=== PATIENT | male | born 1980 | race Caucasian/White ===

== ENCOUNTER 2016-11-01 13:24 | Inpatient (IN) | payer MEDICAID, OTHER ==
--- NOTE | 2016-11-01 13:38 | EDPHY ---
H & P - Medical/Surgical History Hx Asthma: No Hx Chronic Respiratory Disease: No Hx Diabetes: No Hx Cardiac Disease: No Hx Renal Disease: No Hx Cirrhosis: No Hx Alcoholism: No Hx HIV/AIDS: No Hx Splenectomy or Spleen Trauma: No Other PMH: manic-depression, schizoaffective - Social History Smoking Status: Current every day smoker HPI/ROS: CHIEF COMPLAINT: Diffuse abdominal pain since last evening HISTORY OF PRESENT ILLNESS: 35-year-old male with no prior history of abdominal surgeries arrives from detention complaining of diffuse abdominal pain since last evening. No nausea or vomiting. Last bowel movement was this morning and was normal according the patient. No melena or hematochezia. Atraumatic. No urinary abnormality. No fever or chills. No prior history of similar. No history of pancreatitis. PRIMARY CARE PROVIDER: none REVIEW OF SYSTEMS: A ten point review of systems was performed and is negative with the exception of the items mentioned in the HPI PAST MEDICAL & SURGICAL HISTORY: No history of abdominal surgeries. SOCIAL HISTORY: has been in detention since September 2016 PHYSICAL EXAM (Prior to examination, patient consented to physical exam, hands were washed and my usual and customary physical exam procedures followed) 1) GENERAL: Well-developed, well-nourished, alert and oriented. Appears uncomfortable, guarding abdomen, yelling . 2) HEAD: Normocephalic, atraumatic 3) HEENT: Pupils equal, round, reactive to light bilaterally. Sclera anicteric. 4) NECK: Full range of motion, no meningeal signs. 5) LUNGS: Clear auscultation bilaterally 6) HEART: Regular rate and rhythm, no murmur, no heave, no gallop. 7) ABDOMEN: flat, guarding, diffusely tender to palpation all quadrants. , 8) MUSCULOSKELETAL: No peripheral edema or discoloration. 9) BACK: No CVA tenderness, 10) SKIN: No rash, no petechiae. 11) : Normal male external genitalia no testicular pain, swelling, asymmetry. Bilateral cremasteric reflex present and brisk DIFFERENTIAL DIAGNOSIS: My differential diagnosis includes, but is not limited to, acute appendicitis, acute cholecystitis, bowel obstruction, acute pancreatitis, testicular torsion, gastritis, rectal foreign body, bowel perforation . (Sammi Long) Constitutional: Initial Vital Signs Temperature (C) 37.5 C 11/01/16 13:43 Heart Rate 130 H 11/01/16 13:43 Respiratory Rate 16 11/01/16 13:43 Blood Pressure 112/78 11/01/16 13:43 O2 Sat (%) 94 11/01/16 13:43 O2 Delivery Mode Room Air Allergies/Adverse Reactions: No Known Allergies Allergy (Unverified 11/01/16 13:43) Home Medications: Medication Instructions Recorded Risperdal 12/19/13 Seroquel 100 mg (RX) 12/19/13 Sertraline HCl [Zoloft 100mg (RX)] 12/19/13 AZITHROMYCIN [Z-PACK] 250 mg PO DAILY #6 tab 09/23/14 Medical Decision Making - Diagnostics Imaging Results: Imaging Impressions Abdomen CT 11/01/16 13:36 Impression: 1. Foreign body in the rectosigmoid colon midpelvis measuring 8 x 5.5 cm perforating through the colon with abdominal and pelvic extensive pneumoperitoneum and ascites/hemorrhage. By history this is a piece of tile. 2. Please see above findings. Findings and recommendations discussed with Emergency Department physician's catering administrative assistant, Lizbet Long, at 1410 hours, 11/01/2016. Final report concurs with initial preliminary interpretation. Imaging Impressions Abdomen CT 11/01/16 13:36 Impression: 1. Foreign body in the rectosigmoid colon midpelvis measuring 8 x 5.5 cm perforating through the colon with abdominal and pelvic extensive pneumoperitoneum and ascites/hemorrhage. By history this is a piece of tile. 2. Please see above findings. Findings and recommendations discussed with Emergency Department physician's catering administrative assistant, Lizbet Long, at 1410 hours, 11/01/2016. Final report concurs with initial preliminary interpretation. Images reviewed by myself (Sammi Long) ED Course/Re-evaluation: 1:40pm: This patient was seen and examined by me. He is tachycardiac and has a normal blood pressure now. He was initially hypotensive. Abdomen is diffusely tender, decreased bowel sounds, c/w acute surgical abdomen. stat CT abd/pelvis ordered. (Macy Mejia) 1:30 p.m.: Seen on arrival by myself and Dr. Mejia. 2:14 p.m.: Re-evaluation, specifically inquired about the radiopaque foreign body visible on CT imaging. Patient states that this is a floor tile that he purposefully placed in his rectum. Patient did not bring this to our attention previously. 2:19 p.m.: Phone consultation with Dr. Schneider who will come to ER to evaluate patient admit patient. Patient started on IV Invanz. Last oral intake was 8:00 a.m.. (Sammi Long) Differential Diagnosis: Differential diagnosis includes though it is not limited to appendicitis, cholecystitis, diverticulitis, pyelonephritis, small bowel obstruction. (Macy Mejia) - Data Points Laboratory Results: Laboratory Results 11/01/16 13:38 11/01/16 13:38 11/01/16 11/01/16 11/01/16 13:38 13:38 13:31 WBC 6.04 10^3/uL 10^3/uL (3.80-9.50) RBC 4.80 10^6/uL 10^6/uL (4.40-6.38) Hgb 14.8 g/dL g/dL (13.7-17.5) POC Hgb 15.0 gm/dL gm/dL (14.5-17.3) Hct 41.7 % % (40.0-51.0) POC Hct 44 % % (42.8-50.6) MCV 86.9 fL fL (81.5-99.8) MCH 30.8 pg pg (27.9-34.1) MCHC 35.5 g/dL g/dL (32.4-36.7) RDW 12.3 % % (11.5-15.2) Plt Count 312 10^3/uL 10^3/uL (150-400) MPV 8.9 fL fL (8.7-11.7) Neut % (Auto) Not Reported Lymph % (Auto) Not Reported [place] % (Auto) Not Reported Eos % (Auto) Not Reported Baso % (Auto) Not Reported Nucleat RBC Rel Count 0.0 % % (0.0-0.2) Absolute Neuts (auto) Not Reported Absolute Lymphs (auto) Not Reported Absolute Monos (auto) Not Reported Absolute Eos (auto) Not Reported Absolute Basos (auto) Not Reported Absolute Nucleated RBC 0.00 10^3/uL 10^3/uL (0-0.01) Immature Gran % Not Reported Seg Neutrophils % 35 % % Band Neutrophils % 55 % % Lymphocytes % 8 % % Monocytes % 2 % % Immature Gran # Not Reported Absolute Seg Neuts 2.11 10^/uL 10^/uL (1.70-6.50) Absolute Band Neuts 3.32 10^3/uL H 10^3/uL (0.00-0.70) Absolute Lymphocytes 0.48 10^3/uL L 10^3/uL (1.00-3.00) Absolute Monocytes 0.12 10^3/uL L 10^3/uL (0.30-0.80) RBC/WBC/PLT Morphology NORMAL (NORMAL) Platelet Estimate ADEQUATE (ADEQ) POC Sodium 140 mEq/L mEq/L (134-144) Sodium 139 mEq/L mEq/L (134-144) POC Potassium 4.0 mEq/L mEq/L (3.3-5.0) Potassium 4.2 mEq/L mEq/L (3.5-5.2) POC Chloride 102 mEq/L mEq/L (96-108) Chloride 105 mEq/L mEq/L (97-110) Carbon Dioxide 21 mEq/l L mEq/l (22-31) Anion Gap 13 mEq/L mEq/L (8-16) POC BUN 13 mg/dL mg/dL (7-23) BUN 14 mg/dL mg/dL (7-23) Creatinine 1.1 mg/dL mg/dL (0.7-1.3) POC Creatinine 1.2 mg/dL mg/dL (0.8-1.5) Estimated GFR > 60 Glucose 128 mg/dL H mg/dL (70-100) POC Glucose 130 mg/dL H mg/dL (70-100) Calcium 9.0 mg/dL mg/dL (8.5-10.4) Total Bilirubin 1.5 mg/dL H mg/dL (0.1-1.4) Conjugated Bilirubin 0.5 mg/dL mg/dL (0.0-0.5) Unconjugated Bilirubin 1.0 mg/dL mg/dL (0.0-1.1) AST 22 IU/L IU/L (17-59) ALT 23 IU/L IU/L (21-72) Alkaline Phosphatase 87 IU/L IU/L (38-126) Total Protein 6.8 g/dL g/dL (6.3-8.2) Albumin 3.6 g/dL g/dL (3.5-5.0) Lipase 25.0 IU/L IU/L (23-300) Medications Given: Discontinued Medications Fentanyl (Sublimaze) 50 mcg IVP EDNOW ONE Stop: 11/01/16 13:57 Last Admin: 11/01/16 13:57 Dose: 50 mcg Fentanyl (Sublimaze) 50 mcg IVP EDNOW ONE Stop: 11/01/16 14:25 Last Admin: 11/01/16 14:53 Dose: 50 mcg Ertapenem 1 gm/ Sodium (Chloride) 100 mls @ 200 mls/hr IV EDNOW ONE PRN Reason: Protocol Stop: 11/01/16 14:44 Last Admin: 11/01/16 14:30 Dose: 100 mls Point of Care Test Results: 11/01/16 13:31 POC Sodium 140 POC Potassium 4.0 POC Chloride 102 POC BUN 13 POC Creatinine 1.2 POC Glucose 130 H Departure - Departure Disposition: [facility] Inpatient Acute Clinical Impression: Intestinal perforation Abdominal pain Qualifiers: Abdominal location: generalized Qualified Code(s): R10.84 - Generalized abdominal pain Rectal foreign body Qualifiers: Encounter type: initial encounter Qualified Code(s): T18.5XXA - Foreign body in anus and rectum, initial encounter Condition: Fair
[2016-11-01] MEDS ORDERED: fentaNYL 100 MCG/2 ML INJ ONE ×2 (13:41→14:51)
[2016-11-01] MEDS ORDERED: IOPAMIDOL (ISOVUE-300) 100 ML BTL IV ONE (13:43)
[2016-11-01 13:45] LABS: ADD MORPH? NO; ATYPICAL LYMPHOCYTE FLAG 0 (0-99); FRAGMENT RBC FLAG 0 (0-99); HEMATOCRIT 41.7 % (40.0-51.0); HEMOGLOBIN 14.8 g/dL (13.7-17.5); LIPEMIA HEMOLYSIS FLAG 90 (0-99); MEAN CELL HEMOGLOBIN 30.8 pg (27.9-34.1); MEAN CELL HEMOGLOBIN CONCENTR. 35.5 g/dL (32.4-36.7); MEAN CELL VOLUME 86.9 fL (81.5-99.8); MEAN PLATELET VOLUME 8.9 fL (8.7-11.7); PLATELET CLUMPS FLAG 0 (0-99); PLATELET COUNT 312 10^3/uL (150-400); RED CELL DISTRIBUTION WIDTH 12.3 % (11.5-15.2)
[2016-11-01 13:46] LABS: LEFT SHIFT FLG 300 (0-99)
[2016-11-01 13:47] LABS: ADD DIFF? YES; ADD SCAN? NO
[2016-11-01] MEDS ORDERED: fentaNYL 100 MCG/2 ML INJ IVP ONE ×2 (13:56→14:24)
[2016-11-01 14:04] LABS: ALANINE AMINOTRANSFERASE 23 IU/L (21-72); ALBUMIN 3.6 g/dL (3.5-5.0); ALKALINE PHOSPHATASE 87 IU/L (38-126); ANION GAP 13 mEq/L (8-16); ASPARTATE AMINOTRANSFERASE 22 IU/L (17-59); BILIRUBIN,TOTAL 1.5 mg/dL (0.1-1.4); BILIRUBIN-CONJUGATED 0.5 mg/dL (0.0-0.5); CARBON DIOXIDE 21 mEq/l (22-31); CHLORIDE 105 mEq/L (97-110); CREATININE 1.1 mg/dL (0.7-1.3); GLOMERULAR FILTRATION RATE > 60; GLUCOSE 128 mg/dL (70-100); POTASSIUM 4.2 mEq/L (3.5-5.2); SODIUM 139 mEq/L (134-144); TOTAL PROTEIN 6.8 g/dL (6.3-8.2)
[2016-11-01] MEDS ORDERED: ERTAPENEM 1 GM in NS 100 ML IV ONE (14:15)
[2016-11-01] MEDS ORDERED: LIDOCAINE 2% JELLY 20 ML (UROJECT) ONE ×2 (14:39→14:40)
[2016-11-01] MEDS ORDERED: BUPIVACAINE/EPI 0.25% 30 ML SDV ONE (14:39)
[2016-11-01] MEDS ORDERED: ROCURONIUM 50 MG/5 ML VIAL ONE ×2 (14:50→16:30)
[2016-11-01] MEDS ORDERED: LIDOCAINE 2% 5 ML SDV ONE (14:50)
[2016-11-01] MEDS ORDERED: ONDANSETRON 4 MG/2 ML VIAL ONE (14:50)
[2016-11-01] MEDS ORDERED: KETOROLAC 30 MG/1 ML SDV ONE (14:50)
[2016-11-01] MEDS ORDERED: DEXAMETHASONE 4 MG/ML VIAL ONE (14:50)
[2016-11-01] MEDS ORDERED: PROPOFOL 200 MG/20 ML VIAL ONE (14:51)
[2016-11-01 14:59] LABS: PLATELET ESTIMATE ADEQUATE (ADEQ)
[2016-11-01] MEDS ORDERED: MIDAZOLAM 2 MG/2 ML VIAL ONE (15:07)
[2016-11-01] MEDS ORDERED: SUCCINYLCHOLINE CHLORIDE*ANESTHESIA ONLY*200 MG/10 ML SYR IVP ONE (15:13)
--- NOTE | 2016-11-01 15:13 | GHP ---
[f rep st] HISTORY AND PHYSICAL DATE OF ADMISSION: 11/01/2016 CHIEF COMPLAINT: Abdominal pain. HISTORY OF PRESENT ILLNESS: This is a 35-year-old incarcerated male [facility]ruciating [facility] pain. Per the patient's report, he started having the pain late yesterday evening and has progressed to the point where he is in extremis and the senior living bro ught him in for further evaluation here in the emergency department today. Per the patient's report , he has had a foreign body which appears to be a piece of floor tile in his rectum for some time. The patient states multiple different times that it has been in there anywhere from 6 to 12 months, but it sounds like it has been in there an extended amount of time. He states that he has had multi ple foreign bodies within his rectum within the past year and that this may not be the only one at t his point in time. Other than the pain, he endorses having fevers and chills. He denies any other complaints at this point in time, and would like this fixed as soon as possible. PAST MEDICAL HISTORY: Significant for depression and some kind of mood disorder. PAST SURGICAL HISTORY: He had a toe removal; has never had any belly surgeries. SOCIAL HISTORY: Currently incarcerated in the [facility] senior living. Denies any current illicit and/ or alcohol abuse. REVIEW OF SYSTEMS: A full 10-point review was performed and unless explicitly stated above, is othe rwise negative. PHYSICAL EXAM: VITAL SIGNS: Temp 37.5, blood pressure 112/78, heart rate 130/80, saturating 94% on room air. GENERAL: He is alert and oriented, in moderate amount distress. CV: He is tachycardic without any murmurs. LUNGS: Clear to auscultation bilaterally. ABDOMEN: Diffusely rigid with re bound tenderness and guarding. No previous surgical scars apparent. RECTAL: Exam deferred. EXTRE MITIES: Warm and well perfused. LABS: White count 6. Chemistries are unremarkable. CT scan shows a large foreign body within the rectosigmoid colon with a large amount of associated f ree air. ASSESSMENT AND PLAN: 35-year-old male with a colonic perforation secondary to foreign body with dev eloping sepsis. The patient has been started on broad-spectrum antibiotics, as well as IV fluids in the emergency department. I have consented him to take him to the operating room expeditiously for exploration to repair and/or resect the area of perforation and to remove the foreign body. I did discuss the risks, benefits, and alternatives, and did discuss with him that there was a decent rosario ce he will have a colostomy which will depend on intraoperative findings. /[id number]/MODL
[2016-11-01] MEDS ORDERED: BACITRACIN 50,000 UNITS/10 ML SYR IRR ONE (15:14)
[2016-11-01] MEDS ORDERED: PHENYLEPHRINE HCL 100 MCG/ML SYR ONE (15:25)
[2016-11-01] MEDS ORDERED: ALBUMIN 5% 250 ML BOTTLE IV ONE (16:01)
[2016-11-01] MEDS ORDERED: SUGAMMADEX SODIUM 200 MG/2 ML VIAL IVP ONE (16:50)
[2016-11-01] MEDS ORDERED: HYDROmorphONE/DILAUDID 2 MG/ML INJ ONE (17:16)
[2016-11-01] MEDS ORDERED: ACETAMINOPHEN 325 MG TAB PO PRN (17:52)
[2016-11-01] MEDS ORDERED: ONDANSETRON DISINTEGRATING 4 MG TAB PO PRN (17:52)
[2016-11-01] MEDS ORDERED: ONDANSETRON 4 MG/2 ML VIAL IVP PRN (17:52)
--- NOTE | 2016-11-01 17:52 | POSTOPPROG ---
Post Op Note Date of Operation: 11/01/16 Surgeon: José Schneider Agency Appointments Supervisor: Eugenio John MD Anesthesiologist: Agustín Anesthesia: GET(General Endotracheal) Pre-op Diagnosis: perforated viscus Post-op Diagnosis: sigmoid perforation secondary to foreign body Procedure: ex-lap, colectomy, end colostomy with Nikolas's Findings: perf identified in sigmoid, resected. Gross contamination Inf/Abcess present in the surg proc area at time of surgery?: Yes Depth: Organ Space EBL: Minimal Total fluids administered: 5000 Drains: Roscoe Moreno Specimen(s): Sigmoid colon
[2016-11-01] MEDS ORDERED: NALOXONE HCL 0.4 MG/ML INJ IVP PRN (17:55)
[2016-11-01] MEDS ORDERED: HYDROmorphONE/DILAUDID 1 MG/ML SYR ONE (18:07)
[2016-11-01] MEDS: D5W 1/2 NS W/ 20 KCl/L 1,000 ML IV SCH (18:40)
[2016-11-01] MEDS: HYDROmorphONE/DILAUDID 6 MG/30 ML PCA IV PRN (18:40)
[2016-11-01] MEDS: GABAPENTIN 400 MG CAP PO SCH ×2 (18:44→22:46)
--- NOTE | 2016-11-01 18:49 | GOP ---
[f rep st] OPERATIVE REPORT DATE OF OPERATION: 11/01/2016 SURGEON: José Schneider MD POSTAL TRANSPORTATION CLERK: Eugenio John M.D. ANESTHESIA: General endotracheal per Dr. Randolph. PREOPERATIVE DIAGNOSIS: Perforated viscus. POSTOPERATIVE DIAGNOSIS: Perforated sigmoid colon secondary to foreign body. PROCEDURE PERFORMED: Exploratory laparotomy, sigmoid resection with end colostomy and Nikolas pouc h. FINDINGS: Grossly contaminated abdomen with fecal material in all 4 quadrants. Cultures taken. Foc al perforation of the sigmoid colon just above the peritoneal reflection was identified; this area w as focally resected. There was significant amount of induration in the remainder of the rectum. An e nd colostomy was performed. SPECIMENS: Sigmoid colon. ESTIMATED BLOOD LOSS: 25 cc. DESCRIPTION OF PROCEDURE: Patient was greeted in the Emergency Room. Risks, benefits and alternativ es were discussed. Consent was signed. He was then brought back to the operative suite, placed on the OR table in a supine position. After all anesthesia machines, including SCDs were on and functio mundo, a World Health Organization time-out was performed. Antibiotics were given on-call to the ope rating room. General endotracheal anesthesia was then induced without incident. The patient was th en appropriately prepped and draped in typical sterile fashion. I entered the abdomen via a generou s midline incision, carried it down through subcutaneous tissue and the fascia. Upon entering the pa tient's abdomen, there was purulent material throughout the patient's abdomen. An initial attempt w as made to suction all this out. Once this was done, an Omni retractor was placed for appropriate v isualization, identified the sigmoid colon and identified a focal perforation on the antimesenteric border of the sigmoid colon just above the peritoneal reflection. I could palpate the foreign body just deep to this at that site. The remainder of the proximal sigmoid colon appeared to be healthy. Using a single fire of the NIYA-75 blue load stapler, I then stapled off the sigmoid colon just proxi mal to the perforation. I then made a colotomy encompassing the perforation at that site through whi ch I was able to deliver the foreign body, which appeared to be a ceramic-type piece of material, si gnificantly large and sharp. It was removed and passed off. I then oversewed this site as there was still a massive amount of stool and fecal material extruding from it. After this was done, I inter rogated the rest of the sigmoid and rectum. The rectum did appear indurated, but I did not identify any other perforations at this time. After this was done, my attention was then turned toward remov ing the gross contamination. Using almost 6 L of sterile saline with antibiotic impregnation, I irri gated the abdomen in all 4 quadrants, noting clear effluent in the suction canister. After successf ully irrigated and given the amount of gross contamination, I elected to perform an end colostomy. Again, the site that I had oversewn had not been resected. I then dissected down just deep to this, took the mesentery down successfully with the LigaSure device and, using a single fire of the Flapshare r stapler, successfully resected a portion of the rectum and passed it off. The staple line was the n marked on either end with Prolene stitches. After this was done, I mobilized the sigmoid colon to ensure that I had enough length to reach the abdominal wall. I then attempted to perform rigid pro ctoscopy but, given the amount of stool within the rectal stump, I was then able to successfully vis ualize anything at that point in time, even with copious irrigations per rectum. Gloves and gowns we re then changed for me and my resident programs assistant. We then turned our attention toward closing the midline via the fascia with a #1 PDS suture, noting excellent fascial reapproximation. Prior to doing this, we had made a hole in the anterior abdominal wall through the left rectus sheath through which our sig moid colon had been successfully tunneled. Also, I had placed a 19-Sri [place]ank[place] fully fluted channel drain into the pelvis and brought it out via a separate stab incision in the right lower quadrant. In subcutaneous tissue, I placed my 13-S[place]ankan drain, brought it out via separate stab incision in the left lower quadrant. Both drains were attached to the skin with nylon stitches. The skin was then closed over this drain with arie. I then turned my attention toward maturing my colostomy. It was tacked successfully using Vicryl to the underlying fascia. The staple line was then cut and, in a Rhoda-type fashion, I matured my colostomy noting excellent eversion. The ostomy appliance was then successfully placed. Sterile dressings were placed to all sites. The patient was then extubated in the operative suite and placed back onto his gurney, and taken to the PACU in satisfactory condition . DRAINS: A 19-Sri [place]ankan channel drain into the pelvis. A 13-S[place]ankan drain in subcu beneath the arie. COUNTS: All counts were reported as correct x2. /[id number]/MODL
[2016-11-01 22:23] LABS: COLOR YELLOW; LEUKOCYTE ESTERASE,URINE NEGATIVE (NEGATIVE); NITRITE,URINE NEGATIVE (NEGATIVE)
[2016-11-01 22:24] LABS: MUCUS TRACE /lpf (NONE-1+)
[2016-11-01] MEDS: QUEtiapine FUMARATE 300 MG TAB PO SCH (22:46)
[2016-11-02] MEDS: HYDROmorphONE/DILAUDID 6 MG/30 ML PCA IV PRN ×2 (04:35→14:51)
[2016-11-02 05:09] LABS: % IMMATURE GRANULYOCYTES 0.8 % (0.0-1.1); ABSOLUTE IMMATURE GRANULOCYTES 0.12 10^3/uL (0.00-0.10); ADD DIFF? NO; ADD MORPH? NO; ADD SCAN? YES; ATYPICAL LYMPHOCYTE FLAG 0 (0-99); FRAGMENT RBC FLAG 0 (0-99); HEMATOCRIT 30.7 % (40.0-51.0); HEMOGLOBIN 10.7 g/dL (13.7-17.5); LIPEMIA HEMOLYSIS FLAG 90 (0-99); MEAN CELL HEMOGLOBIN 31.6 pg (27.9-34.1); MEAN CELL HEMOGLOBIN CONCENTR. 34.9 g/dL (32.4-36.7); MEAN CELL VOLUME 90.6 fL (81.5-99.8); MEAN PLATELET VOLUME 9.2 fL (8.7-11.7); PLATELET CLUMPS FLAG 0 (0-99); PLATELET COUNT 190 10^3/uL (150-400); RED BLOOD CELL COUNT 3.39 10^6/uL (4.40-6.38); RED CELL DISTRIBUTION WIDTH 12.9 % (11.5-15.2)
[2016-11-02 05:32] LABS: LEFT SHIFT FLG 300 (0-99)
[2016-11-02 05:48] LABS: ANION GAP 7 mEq/L (8-16); CALCIUM 7.8 mg/dL (8.5-10.4); CARBON DIOXIDE 24 mEq/l (22-31); CHLORIDE 105 mEq/L (97-110); CREATININE 0.7 mg/dL (0.7-1.3); GLOMERULAR FILTRATION RATE > 60; GLUCOSE 143 mg/dL (70-100); POTASSIUM 4.6 mEq/L (3.5-5.2); SODIUM 136 mEq/L (134-144)
[2016-11-02 06:00] LABS: SCAN POSITIVE
[2016-11-02 06:03] LABS: PLATELET ESTIMATE ADEQUATE (ADEQ)
[2016-11-02] MEDS: ERTAPENEM 1 GM in NS 100 ML IV SCH (08:02)
[2016-11-02] MEDS: GABAPENTIN 400 MG CAP PO SCH ×3 (08:02→20:19)
[2016-11-02] MEDS: ENOXAPARIN 40 MG/0.4 ML SYR SC SCH (08:02)
--- NOTE | 2016-11-02 09:26 | WOCRNPDOC ---
SHIRA Advanced Assessment Note - Colostomy Assessment, Advanced Colostomy Stoma Colostomy Appliance Intact: Yes Colostomy Appliance Currently in Use: Two Piece Flat, 2 3/4, Moldable Stoma Color: Red Stoma Turgor: Moist, Shiny Stoma Shape: Round Stoma Height: Protruding Mucocutaneus Junction: Intact Colostomy Effluent: Serosangenous, Mucous Colostomy Size - Head-to-Toe Length X Width X Depth (cm): 3.5cmx3.7cmx2.1cm ( above skin) Colostomy Details: End, Nikolas's Pouch Colostomy Comment/Treatment Details: Moist, red stoma w/ moderate profile. Unable to visualize peristomal skin because of intact barrier, intact sutures noted at mucocutaneous junction. No flatus in pouch because of filter on bag, but there is scant serosanguinous/mucous observed. Patient c/o 9/10 pain to abdomen during visual assessment, and was advised to use his HANGER. Initiated teaching w/ patient this visit. He was able to look at the stoma, and demonstrated general knowledge about the surgery, stating "that's my intestine. " Due to c/o pain, I will re-attempt teaching on Saturday 11/04 when he is due to have his pouching system changed. Officer in room during this visit. Attempted to leave some general teaching information for patient, but was informed by officer that I would have to remove the metal spirals from the Secure Start colostomy booklet for patient/staff safety. Will deliver educational material this afternoon that meets officer's safety guidelines. Report given to senior bioinformatics specialist Aimee.
--- NOTE | 2016-11-02 09:54 | SOAPPROG ---
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 Has not needed pressors. will cont to monitor - Abd: soft, ND, aTTP. Incision covered with clean dressing. Stoma beefy red, sweat in appliance. Wound RN to see and assist with stoma care and teaching. PASTORA mostly serous. Received 2 enemas overnight, drained mostly purulent material. Will defer flex sig for now as my treatment for rectal injury which I assuming he has to some degree would be diversion (which he is). He is tolerating clears , I anticipate ileus so will not advance past this today - Renal: mendoza, UOP appropriate. - ID: WBC up to 15k today, gram stain showing GPCs and GPRs. On Invanz, I have asked ID to assist with managment - Dispo: remain SDU. Cont abx. and clear liquids. 11/02/16 09:50 11/02/16 09:54 Subjective: Doing well, pain controlled. Tolerating clears Objective: Vital Signs Temp Pulse Resp BP Pulse Ox 36.7 C 108 H 23 H 98/70 L 100 11/02/16 08:00 11/02/16 08:00 11/02/16 08:00 11/02/16 08:00 11/02/16 08:00 Microbiology 11/01/16 16:36 Gram Stain - Final Abdomen - Aspirate Laboratory Results 11/02/16 04:45 11/02/16 04:45 11/01/16 11/02/16 11/03/16 05:59 05:59 05:59 Intake Total 6037 Output Total 3130 Balance 2907 ICD10 Worksheet Patient Problems: Problems Problem Status Onset Abdominal pain Acute Intestinal perforation Acute Rectal foreign body Acute
[2016-11-02 12:41] LABS: % IMMATURE GRANULYOCYTES 1.1 % (0.0-1.1); ABSOLUTE IMMATURE GRANULOCYTES 0.19 10^3/uL (0.00-0.10); ADD DIFF? NO; ADD MORPH? NO; ADD SCAN? YES; ATYPICAL LYMPHOCYTE FLAG 0 (0-99); FRAGMENT RBC FLAG 0 (0-99); HEMATOCRIT 31.6 % (40.0-51.0); HEMOGLOBIN 10.8 g/dL (13.7-17.5); LIPEMIA HEMOLYSIS FLAG 90 (0-99); MEAN CELL HEMOGLOBIN 31.4 pg (27.9-34.1); MEAN CELL HEMOGLOBIN CONCENTR. 34.2 g/dL (32.4-36.7); MEAN CELL VOLUME 91.9 fL (81.5-99.8); MEAN PLATELET VOLUME 9.3 fL (8.7-11.7); PLATELET CLUMPS FLAG 0 (0-99); PLATELET COUNT 197 10^3/uL (150-400); RED BLOOD CELL COUNT 3.44 10^6/uL (4.40-6.38); RED CELL DISTRIBUTION WIDTH 12.8 % (11.5-15.2)
[2016-11-02 12:43] LABS: INR 1.48 (0.83-1.16); LEFT SHIFT FLG 300 (0-99); PROTIME(PATIENT) 17.9 SEC (12.0-15.0)
[2016-11-02 13:07] LABS: ALANINE AMINOTRANSFERASE 28 IU/L (21-72); ALBUMIN 2.7 g/dL (3.5-5.0); ALKALINE PHOSPHATASE 48 IU/L (38-126); ANION GAP 7 mEq/L (8-16); ASPARTATE AMINOTRANSFERASE 16 IU/L (17-59); BILIRUBIN,TOTAL 0.6 mg/dL (0.1-1.4); BILIRUBIN-CONJUGATED 0.3 mg/dL (0.0-0.5); BILIRUBIN-UNCONJUGATED 0.3 mg/dL (0.0-1.1); CALCIUM 8.1 mg/dL (8.5-10.4); CARBON DIOXIDE 27 mEq/l (22-31); CHLORIDE 103 mEq/L (97-110); CREATININE 0.7 mg/dL (0.7-1.3); GLOMERULAR FILTRATION RATE > 60; GLUCOSE 93 mg/dL (70-100); POTASSIUM 4.6 mEq/L (3.5-5.2); SODIUM 137 mEq/L (134-144); TOTAL PROTEIN 5.4 g/dL (6.3-8.2)
[2016-11-02 13:15] LABS: SCAN POSITIVE
[2016-11-02 13:18] LABS: PLATELET ESTIMATE ADEQUATE (ADEQ)
--- NOTE | 2016-11-02 15:51 | GCON ---
[f rep st] CONSULTATION INFECTIOUS DISEASE CONSULTATION DATE OF CONSULTATION: 11/02/2016 REFERRING PHYSICIAN: José Schneider MD REASON FOR CONSULTATION: Bowel perforation and subsequent peritonitis. HISTORY OF PRESENT ILLNESS: A 35-year-old male who has underlying mental illness who is currently incarcerated at [facility], presents to the emergency room on 11/01 with excruciating abdominal pain. The patient underwent an immediate CT scan of his abdomen, which showed a foreign body in the rectosigmoid measuring 8 x 5.5 cm perforating through the colon with extensive pneumoperitoneum, ascites and hemorrhage. The patient immediately went to the operating room where gross peritoneal contamination was identified with a perforated sigmoid colon and large, sharp foreign body was identified consistent with tile. He underwent a colectomy and end colostomy with Nikolas' s pouch, and cultures were obtained. Gram stain demonstrated, as expected, polymicrobial picture with 4+ GPCs, 1+ gram-positive rods and 1+ gram-negative rods. Patient was empirically started on ertapenem, and postoperatively has had some increased heart rate and systolic blood pressures in the 90s. Therefore sepsis protocol was initiated with IV fluids and blood cultures. The patient today reports that his abdominal pain is better postoperatively but is still very painful. He is having intermittent sharp pain. Currently, no air in the colostomy bag as of yet. The patient admits to placing the piece of tile in his rectum himself. PAST MEDICAL HISTORY: Psychiatric illness: Patient states, "he has no problems." PAST SURGICAL HISTORY: Patient had a 6th toe bilaterally that he reports having revised previously in childhood. SOCIAL HISTORY: He is incarcerated. He uses tobacco and currently denies illicit or alcohol abuse. FAMILY HISTORY: Patient states he is unaware of his family history. ALLERGIES: NKDA. MEDICATIONS: Tylenol, [place], Lovenox, ertapenem 1 g IV daily started 11/01/2016 , Neurontin 1200 mg p.o. t.i.d., Dilaudid, Motrin, Narcan, Zofran, IV fluids with potassium and Seroquel 300 mg at bedtime. REVIEW OF SYSTEMS: A complete 10-point review of systems was performed and is negative except as mentioned in the HPI. PHYSICAL EXAM: VITAL SIGNS: Blood pressure 96/56, heart rate 106, respiratory rate 28, saturation 99% on 2 L, temperature 36.3. He has been afebrile throughout his hospital course. GENERAL: This is a young male, lying in bed in no acute distress, handcuffed to the bed. HEENT: Fair dentition, moist mucous membranes. NECK: Supple. No lymphadenopathy. CARDIOVASCULAR: Tachycardic. Regular rate. No murmurs. CHEST: Clear to auscultation bilaterally but poor inspiratory effort. ABDOMEN: Slightly distended. Dressing was in place. Upper midline surgical scar. Right lower Nikolas pouch with liquid in the bag but no air. Patient had absent bowel sounds and mild discomfort to palpation diffusely. Patient with right lower quadrant drain with serosanguineous fluid. EXTREMITIES: No clubbing, cyanosis, or edema. NEUROLOGIC: The patient had an odd affect but answers questions appropriately with moving all 4 extremities equally. LABORATORY: White count [id number] hematocrit 31, platelets of 197, 89% neutrophils , 5% lymphocytes, 3% monocytes, creatinine is 0.7. AST 16. ALT 28, alkaline phosphatase 48. Blood cultures are collected today. Urinalysis was negative on admission. IMAGING: As per HPI. ASSESSMENT AND PLAN: This is a 35-year-old male who is incarcerated with underlying psychiatric illness who inserted tile rectally with subsequently resulting in sigmoid perforation and resultant peritonitis due to jonny spillage of fecal material. Suspect a polymicrobial infection with typical intraabdominal organisms such as E coli, Enterobacter and anaerobes. Could also consider the role of Denia. Course postoperatively not entirely unexpected due to severity of process but reasonable to obtain blood cultures and increase hydration. 1. Peritonitis due to sigmoid a perforation from foreign body. 2. Mild sepsis due to sigmoid perforation. RECOMMENDATIONS: 1. Reasonable to continue ertapenem at this time and will follow cultures. If continues to decompensate, could consider broader coverage that would include enterococcal or yeast coverage. 2. Duration of therapy unclear at this point. Will continue to monitor clinically. 3. Continue to monitor cultures Thank you for this consultation. Will continue to follow daily. /[id number]/MODL MTDD
--- NOTE | 2016-11-02 16:29 | SOAPPROG ---
BERNABE Progress Note Assessment/Plan: Assessment: 35-year-old [facility] inmate with the sigmoid perforation from rectal foreign body Vital signs stable/ afebrile/ abdomen soft / wound okay / hematocrit stable patient not truly a trauma patient and will be followed by his primary surgeon Plan: regular follow-up but Dr. Schneider 11/02/16 16:27 Objective: Vital Signs Temp Pulse Resp BP Pulse Ox 37.0 C 112 H 23 H 111/62 99 11/02/16 15:16 11/02/16 15:16 11/02/16 15:16 11/02/16 15:16 11/02/16 15:16 Microbiology 11/01/16 16:36 Gram Stain - Final Abdomen - Aspirate Laboratory Results 11/02/16 12:20 11/02/16 12:20 11/01/16 11/02/16 11/03/16 05:59 05:59 05:59 Intake Total 6037 Output Total 3130 3350 Balance 2907 -3350 PT 17.9 SEC (12.0-15.0) H 11/02/16 12:20 INR 1.48 (0.83-1.16) H 11/02/16 12:20 ICD10 Worksheet Patient Problems: Problems Problem Status Onset Abdominal pain Acute Intestinal perforation Acute Rectal foreign body Acute
--- NOTE | 2016-11-02 16:41 | GCON ---
[f rep st] CONSULTATION PULMONARY/CRITICAL CARE CONSULTATION. DATE OF CONSULTATION: 11/02/2016 REFERRING PROVIDER: José Schneider M.D. REASON FOR REFERRAL: Evaluation and management of hypotension in the setting of possible sepsis. HISTORY: The patient is a 35-year-old male who is incarcerated and brought to the emergency departm ent from the assisted with excruciating abdominal pain for a day. Evaluation found a piece of ceramic t ile in his abdomen that he said he had placed there 6-12 months earlier. He was taken emergently to the operating room by Dr. Schneider who did a laparotomy and removed tile which had perforated the bowel. He did a colostomy. Postoperatively, the patient has had significant abdominal pain, but t his is fairly well-controlled with a Dilaudid STRUCTURAL MANAGER. The patient has had hypotension, with a blood pressure as low as 83/54 last night and 96/56 this mor mundo. He denies chest pain or shortness of breath. He still feels quite weak. PAST MEDICAL HISTORY: 1. Depression. 2. Mood disorder. MEDICATIONS: At the time of admission include Seroquel and gabapentin. ALLERGIES: None. SOCIAL HISTORY: The patient is incarcerated. He denies alcohol and illicit drug use. FAMILY HISTORY: Unremarkable. REVIEW OF SYSTEMS: A 10-point review of systems was performed and adds nothing to the history of pr esent illness. PHYSICAL EXAMINATION: GENERAL: The patient is awake, alert, and in no acute distress. VITAL SIGNS : Blood pressure is 111/62, heart rate is 112 with a respiratory rate of 23. His oxygen saturatio ns are 99% on 2 L. He is afebrile. HEENT: Normocephalic and atraumatic. No icterus. NECK: No a denopathy. Trachea is midline. CHEST: Clear to auscultation. CARDIAC: Regular rate and rhythm w ithout murmur. ABDOMEN: He has a midline incision that is dressed. He has a left-sided colostomy. Bowel sounds are present. EXTREMITIES: No clubbing, cyanosis, or edema. NEURO: The patient is awake, alert, and oriented. He has grossly normal strength in all extremities. LABORATORY: White blood count 16.8 with 74% bands, up from a white blood count of 6.0 at the time o f admission. His hemoglobin is 10.8, down from 14.8. Chemistry group shows an anion gap of 7 with a normal creatinine at 0.7. LFTs are normal. INR is 1.5. Venous lactate is 1.4. A CT scan of the abdomen demonstrates a foreign body that has perforated the colon with extensive pn eumoperitoneum and fluid. Images reviewed. ASSESSMENT: 1. Status post abdominal perforation due to a foreign body. The patient has had a laparotomy to re move the foreign body and a colostomy has been performed. He had extensive fecal soilage in the abd omen. He has been seen by Infectious Disease and is currently on ertapenem. His postoperative abdo tevin pain is fairly well controlled with Dilaudid STRUCTURAL MANAGER. 2. Hypotension. This likely represents some sepsis, although the patient has a negative lactate. He has a high white blood count with bandemia. His hypotension has responded to IV fluids, of which he has received 6 L so far. 3. Anemia. This is likely due to dilution as well as some blood loss from abdominal perforation an d subsequent surgery. 4. Tachycardia. This is likely due to the patient's infection. RECOMMENDATIONS: 1. Continue empiric antibiotics as well as IV fluids and STRUCTURAL MANAGER. 2. His hemoglobin will be followed. /[id number]/MODL
[2016-11-02] MEDS: QUEtiapine FUMARATE 300 MG TAB PO SCH (20:19)
[2016-11-03] MEDS: HYDROmorphONE/DILAUDID 6 MG/30 ML PCA IV PRN ×2 (04:39→15:04)
[2016-11-03] MEDS: D5W 1/2 NS W/ 20 KCl/L 1,000 ML IV SCH (05:40)
[2016-11-03] MEDS: ENOXAPARIN 40 MG/0.4 ML SYR SC SCH (09:23)
[2016-11-03] MEDS: GABAPENTIN 400 MG CAP PO SCH ×3 (09:23→22:53)
[2016-11-03] MEDS: ERTAPENEM 1 GM in NS 100 ML IV SCH (09:24)
--- NOTE | 2016-11-03 09:50 | PCMIDPN ---
Assessment/Plan: Polymicrobial peritonitis due to self-induced perforation with tile. Gram stain from OR 11/01 appears polymicrobial as expected. Cultures are pending. Blood cultures were obtained 11/02/2016 due to soft blood pressures. No growth today --continue empiric ertapenem. Noting gap in coverage of yeast and Enterococcus as well as more resistant gram-negative rods such as Pseudomonas --repeat CBC and CMP tomorrow --HIV and hepatitis-C screen was negative --duration of therapy is still unknown, will be based on source control. Medications Ertapenem 1 g IV daily, # 3 Subjective: Patient's primary complaint is feeling like there is congestion in his throat. Abdominal pain is improved Objective: Vital Signs Temp Pulse Resp BP Pulse Ox 37.4 C 112 H 16 116/70 97 11/03/16 08:00 11/03/16 08:00 11/03/16 08:00 11/03/16 08:00 11/03/16 08:00 Microbiology 11/01/16 16:36 Mycobacterial Smear (DAYA) - Final Abdomen - Aspirate 11/01/16 16:36 Gram Stain - Final Abdomen - Aspirate Laboratory Results 11/02/16 12:20 11/02/16 12:20 11/02/16 11/03/16 11/04/16 05:59 05:59 05:59 Intake Total 6037 6711 Output Total 6770 2221 Balance 2907 -279 - Physical Exam General Appearance: alert, no apparent distress EENT: No scleral icterus Respiratory: lungs clear, No accessory muscle use Cardiac/Chest: tachycardia Extremities: No pedal edema Abdomen: non-tender, distended, other (2 PASTORA drains with primarily serous sanguinous fluid with some debris) Male Genitalia: No mendoza, No scrotal edema Skin: other (Multiple that to), No rash Neuro/Psych: alert, oriented x 3 ICD10 Worksheet Patient Problems: Problems Problem Status Onset Abdominal pain Acute Intestinal perforation Acute Rectal foreign body Acute
[2016-11-03] MEDS ORDERED: ALBUTEROL 3 ML DEYVIAL IH PRN (10:39)
--- NOTE | 2016-11-03 10:51 | SOAPPROG ---
SOALLYSON Progress Note Assessment/Plan: Assessment: 35-year-old [facility] with the sigmoid perforation from rectal foreign body Vital signs stable/ afebrile/ abdomen soft / wound okay / hematocrit stable patient not truly a trauma patient and will be followed by his primary surgeon Plan: regular follow-up but Dr. Schneider 11/02/16 16:27 11/03/16 10:48 flat affect/ wound ok/ still febrile/ abd disended silent/ thick cough/ ostomy ok/ tolerating sips Objective: Vital Signs Temp Pulse Resp BP Pulse Ox 37.4 C 112 H 16 116/70 97 11/03/16 08:00 11/03/16 08:00 11/03/16 08:00 11/03/16 08:00 11/03/16 08:00 Microbiology 11/01/16 16:36 Mycobacterial Smear (DAYA) - Final Abdomen - Aspirate 11/01/16 16:36 Gram Stain - Final Abdomen - Aspirate Laboratory Results 11/02/16 12:20 11/02/16 12:20 11/02/16 11/03/16 11/04/16 05:59 05:59 05:59 Intake Total 6037 6711 Output Total 9918 6510 Balance 2907 -279 PT 17.9 SEC (12.0-15.0) H 11/02/16 12:20 INR 1.48 (0.83-1.16) H 11/02/16 12:20 ICD10 Worksheet Patient Problems: Problems Problem Status Onset Abdominal pain Acute Intestinal perforation Acute Rectal foreign body Acute
[2016-11-03] MEDS: guaiFENesin 600 MG TAB.ER PO SCH ×2 (12:20→19:34)
[2016-11-03 14:49] LABS: HEPATITIS Bs Ab QUANT <5.0 mIU/mL
--- NOTE | 2016-11-03 15:25 | PDINTPN ---
Machine Ii Trimmer Progress Note Assessment/Plan: Assessment: Colonic Perforation due to foreign body: S/P repair with colostomy 11/01 Peritonitis: Due to perforation. WBC high and up a bit, but afebrile, drains clear, symptoms stable. On ertapenem Anemia: Hgb unchanged. Plan: Continue Invanz, Dilaudid. Will start Pepcid. Continue Lovenox. 11/03/16 15:26 Subjective: Feels a bit better, starting to take PO. 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 Objective: Vital Signs Temp Pulse Resp BP Pulse Ox 36.9 C 106 H 14 116/70 97 11/03/16 12:00 11/03/16 12:00 11/03/16 12:00 11/03/16 12:00 11/03/16 12:00 Microbiology 11/01/16 16:36 Gram Stain - Final Abdomen - Aspirate 11/01/16 16:36 Mycobacterial Smear (DAYA) - Final Abdomen - Aspirate Laboratory Results 11/02/16 12:20 11/02/16 12:20 11/02/16 11/03/16 11/04/16 05:59 05:59 05:59 Intake Total 6037 6711 Output Total 3130 3478 2945 Balance 2907 -279 -2949 PT 17.9 SEC (12.0-15.0) H 11/02/16 12:20 INR 1.48 (0.83-1.16) H 11/02/16 12:20 Physical Exam - Physical Exam General Appearance: alert, no apparent distress EENT: normal ENT inspection Neck: normal inspection Respiratory: lungs clear, normal breath sounds Cardiac/Chest: regular rate, rhythm, No edema Abdomen: soft, No normal bowel sounds, No non-tender (tender to firm palpation) Skin: normal color, warm/dry Extremities: normal inspection Neuro/Psych: alert, normal mood/affect, oriented x 3 ICD10 Worksheet Patient Problems: Problems Problem Status Onset Abdominal pain Acute Intestinal perforation Acute Rectal foreign body Acute
[2016-11-03] MEDS: FAMOTIDINE 20 MG/NACL 50 ML IV SCH (19:34)
[2016-11-03] MEDS: QUEtiapine FUMARATE 300 MG TAB PO SCH (19:34)
[2016-11-04] MEDS: D5W 1/2 NS W/ 20 KCl/L 1,000 ML IV SCH ×2 (03:13→14:28)
[2016-11-04 06:44] LABS: % IMMATURE GRANULYOCYTES 1.8 % (0.0-1.1); ABSOLUTE IMMATURE GRANULOCYTES 0.27 10^3/uL (0.00-0.10); ADD DIFF? NO; ADD MORPH? NO; ADD SCAN? NO; ATYPICAL LYMPHOCYTE FLAG 20 (0-99); FRAGMENT RBC FLAG 0 (0-99); HEMATOCRIT 32.8 % (40.0-51.0); HEMOGLOBIN 11.4 g/dL (13.7-17.5); LEFT SHIFT FLG 80 (0-99); LIPEMIA HEMOLYSIS FLAG 90 (0-99); MEAN CELL HEMOGLOBIN 30.9 pg (27.9-34.1); MEAN CELL HEMOGLOBIN CONCENTR. 34.8 g/dL (32.4-36.7); MEAN CELL VOLUME 88.9 fL (81.5-99.8); MEAN PLATELET VOLUME 9.1 fL (8.7-11.7); PLATELET CLUMPS FLAG 30 (0-99); PLATELET COUNT 245 10^3/uL (150-400); RED BLOOD CELL COUNT 3.69 10^6/uL (4.40-6.38); RED CELL DISTRIBUTION WIDTH 12.7 % (11.5-15.2)
[2016-11-04 07:22] LABS: ALANINE AMINOTRANSFERASE 28 IU/L (21-72); ALBUMIN 2.5 g/dL (3.5-5.0); ALKALINE PHOSPHATASE 77 IU/L (38-126); ANION GAP 8 mEq/L (8-16); ASPARTATE AMINOTRANSFERASE 17 IU/L (17-59); BILIRUBIN,TOTAL 0.8 mg/dL (0.1-1.4); CALCIUM 8.2 mg/dL (8.5-10.4); CARBON DIOXIDE 24 mEq/l (22-31); CHLORIDE 105 mEq/L (97-110); CREATININE 0.6 mg/dL (0.7-1.3); GLOMERULAR FILTRATION RATE > 60; GLUCOSE 94 mg/dL (70-100); POTASSIUM 4.2 mEq/L (3.5-5.2); SODIUM 137 mEq/L (134-144); TOTAL PROTEIN 5.3 g/dL (6.3-8.2)
[2016-11-04] MEDS: ENOXAPARIN 40 MG/0.4 ML SYR SC SCH (09:48)
[2016-11-04] MEDS: GABAPENTIN 400 MG CAP PO SCH ×3 (09:48→21:31)
[2016-11-04] MEDS: FAMOTIDINE 20 MG/NACL 50 ML IV SCH (09:48)
[2016-11-04] MEDS: guaiFENesin 600 MG TAB.ER PO SCH ×2 (09:49→21:31)
[2016-11-04] MEDS: VANCOMYCIN 1.25 GM in D5W 250 ML IV SCH ×2 (10:42→21:47)
[2016-11-04] MEDS: ERTAPENEM 1 GM in NS 100 ML IV SCH (10:42)
--- NOTE | 2016-11-04 11:09 | SOAPPROG ---
BERNABE Progress Note Assessment/Plan: Assessment: 35-year-old [facility] inmate with the sigmoid perforation from rectal foreign body Vital signs stable/ afebrile/ abdomen soft / wound okay / hematocrit stable patient not truly a trauma patient and will be followed by his primary surgeon Plan: regular follow-up but Dr. 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 / POSITIVE BOWEL SOUNDS / POSITIVE FLATUS AND BMS / AFEBRILE/ MODERATE PASTORA DRAINAGE SLIGHTLY DISCOLORED PLAN IS TRANSFERRED TO [facility] AND IS SLOWLY ADVANCE DIET Objective: Vital Signs Temp Pulse Resp BP Pulse Ox 36.9 C 100 20 119/75 96 11/04/16 08:00 11/04/16 08:00 11/04/16 08:00 11/04/16 08:00 11/04/16 08:00 Microbiology 11/01/16 16:36 Gram Stain - Final Abdomen - Aspirate Laboratory Results 11/04/16 06:30 11/04/16 06:30 11/03/16 11/04/16 11/05/16 05:59 05:59 05:59 Intake Total 6783 9916 Output Total 3755 0120 Balance -823 -2999 PT 17.9 SEC (12.0-15.0) H 11/02/16 12:20 INR 1.48 (0.83-1.16) H 11/02/16 12:20 ICD10 Worksheet Patient Problems: Problems Problem Status Onset Abdominal pain Acute Intestinal perforation Acute Rectal foreign body Acute
--- NOTE | 2016-11-04 11:11 | SOAPPROG ---
BERNABE Progress Note Assessment/Plan: Assessment: 35-year-old group home inmate with the sigmoid perforation from rectal foreign body Vital signs stable/ afebrile/ abdomen soft / wound okay / hematocrit stable patient not truly a trauma patient and will be followed by his primary surgeon Plan: regular follow-up but Dr. 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 HE STILL NEEDS A GRAM-NEGATIVE COVERAGE WERE HIS ABDOMINAL FLUID AND PERITONITIS Objective: Vital Signs Temp Pulse Resp BP Pulse Ox 36.9 C 100 20 119/75 96 11/04/16 08:00 11/04/16 08:00 11/04/16 08:00 11/04/16 08:00 11/04/16 08:00 Microbiology 11/01/16 16:36 Gram Stain - Final Abdomen - Aspirate Laboratory Results 11/04/16 06:30 11/04/16 06:30 11/03/16 11/04/16 11/05/16 05:59 05:59 05:59 Intake Total 6739 1550 Output Total 0687 2176 Balance -125 -0586 PT 17.9 SEC (12.0-15.0) H 11/02/16 12:20 INR 1.48 (0.83-1.16) H 11/02/16 12:20 ICD10 Worksheet Patient Problems: Problems Problem Status Onset Abdominal pain Acute Intestinal perforation Acute Rectal foreign body Acute
--- NOTE | 2016-11-04 11:45 | PCMIDPN ---
Assessment/Plan: Polymicrobial peritonitis due to self-induced perforation with tile. Gram stain from OR 11/01 appears polymicrobial as expected. CX show SA. High risk MRSA due to incarceration. Blood cultures were obtained 11/02/2016 NGTD. JPs with serous to serosang fluid --continue empiric ertapenem. Add vancomycin for coverage of MRSA, 1.25gm based on age, weight, normal renal function --duration of therapy is still unknown, will be based on source control. Medications Ertapenem 1 g IV daily, # 4 Subjective: abdominal pain comes and goes no gas in ostomy bag yet Objective: Vital Signs Temp Pulse Resp BP Pulse Ox 36.9 C 100 20 119/75 96 11/04/16 08:00 11/04/16 08:00 11/04/16 08:00 11/04/16 08:00 11/04/16 08:00 Microbiology 11/01/16 16:36 Gram Stain - Final Abdomen - Aspirate Laboratory Results 11/04/16 06:30 11/04/16 06:30 11/03/16 11/04/16 11/05/16 05:59 05:59 05:59 Intake Total 6711 1550 Output Total 6990 6520 Balance -279 -8800 Tm 37.6 General Appearance: alert, mild distress EENT: No scleral icterus Respiratory: lungs clear, No accessory muscle use Cardiac/Chest: tachycardia Extremities: No pedal edema Abdomen: non-tender, distended, 2 PASTORA drains with primarily serous sanguinous fluid; midline surgical dressing in place Male Genitalia: No mendoza, No scrotal edema Skin: Multiple tattoos, No rash Neuro/Psych: alert, oriented x 3, odd affect ICD10 Worksheet Patient Problems: Problems Problem Status Onset Abdominal pain Acute Intestinal perforation Acute Rectal foreign body Acute
[2016-11-04] MEDS: HYDROCODONE/APAP 5/325 TAB PO PRN ×2 (14:27→21:30)
[2016-11-04] MEDS: KETOROLAC 15 MG/1 ML SDV IVP SCH ×2 (14:27→17:56)
[2016-11-04] MEDS: FAMOTIDINE 20 MG TAB PO SCH (21:31)
[2016-11-04] MEDS: QUEtiapine FUMARATE 300 MG TAB PO SCH (21:31)
[2016-11-05] MEDS: KETOROLAC 15 MG/1 ML SDV IVP SCH ×2 (00:10→05:53)
[2016-11-05] MEDS: D5W 1/2 NS W/ 20 KCl/L 1,000 ML IV SCH (05:53)
[2016-11-05] MEDS: guaiFENesin 600 MG TAB.ER PO SCH ×2 (08:38→21:04)
[2016-11-05] MEDS: GABAPENTIN 400 MG CAP PO SCH ×3 (08:38→21:04)
[2016-11-05] MEDS: HYDROCODONE/APAP 5/325 TAB PO PRN ×3 (08:38→21:05)
[2016-11-05] MEDS: FAMOTIDINE 20 MG TAB PO SCH ×2 (08:38→21:05)
[2016-11-05] MEDS: ERTAPENEM 1 GM in NS 100 ML IV SCH (08:39)
[2016-11-05] MEDS: VANCOMYCIN 1.25 GM in D5W 250 ML IV SCH (08:39)
[2016-11-05] MEDS: ENOXAPARIN 40 MG/0.4 ML SYR SC SCH (08:41)
--- NOTE | 2016-11-05 09:42 | SOAPPROG ---
SOAP Progress Note Assessment/Plan: Assessment/Plan: - Neuro: Pain controlled, will dc toradol, favor orals only - Pulm: stable on NC, aggressive pulm toilet - CV: BP stable, NSR - Abd: soft, ND, NTTP, excellent bowel sounds, stoma beefy red with stool in appliance. Incision open to air and c/d/i. Subq PASTORA serous with minimal drainage. pelvic PASTORA purulent, with 150cc output. ADAT, cont BS Abx. no showering until drains are out - Renal: voiding, UOP appropriate. - ID: WBC [id number], Cx growing staph aureus? appreciate IM, ID assistance, if WBC persists or fevers would consider CTAP as has many risk factors for abscess. 11/02/16 09:50 11/02/16 09:54 11/05/16 09:38 Subjective: Doing well, tolerating diet, pain controlled Objective: Vital Signs Temp Pulse Resp BP Pulse Ox 36.8 C 85 16 112/62 92 11/05/16 08:00 11/05/16 08:00 11/05/16 08:00 11/05/16 08:00 11/05/16 08:00 Microbiology 11/01/16 16:36 Gram Stain - Final Abdomen - Aspirate 11/01/16 16:36 Mycobacterial Smear (DAYA) - Final Abdomen - Aspirate Laboratory Results 11/04/16 06:30 11/04/16 06:30 11/04/16 11/05/16 11/06/16 05:59 05:59 05:59 Intake Total 1550 3468 Output Total 6520 2125 Balance -4970 1343 PT 17.9 SEC (12.0-15.0) H 11/02/16 12:20 INR 1.48 (0.83-1.16) H 11/02/16 12:20 ICD10 Worksheet Patient Problems: Problems Problem Status Onset Abdominal pain Acute Intestinal perforation Acute Rectal foreign body Acute
--- NOTE | 2016-11-05 10:28 | PCMIDPN ---
Assessment/Plan: Assessment/Plan: * Polymicrobial peritonitis including MSSA status post self-induced sigmoid perforation with tile: Continue ertapenem. Will discontinue vancomycin based on susceptibility profile of Staph aureus. Agree likely will require repeat CT scan over time to assess for abscess formation particularly if white blood cell count fails to decrease. 11/05/16 10:25 Subjective: Patient complains of dry mouth. Mild abdominal discomfort. Objective: Vital Signs Temp Pulse Resp BP Pulse Ox 36.8 C 85 16 112/62 92 11/05/16 08:00 11/05/16 08:00 11/05/16 08:00 11/05/16 08:00 11/05/16 08:00 Microbiology 11/01/16 16:36 Gram Stain - Final Abdomen - Aspirate 11/01/16 16:36 Mycobacterial Smear (DAYA) - Final Abdomen - Aspirate Laboratory Results 11/04/16 06:30 11/04/16 06:30 11/04/16 11/05/16 11/06/16 05:59 05:59 05:59 Intake Total 1550 3468 Output Total 6520 2125 900 Balance -4970 1343 -900 Ertapenem # 5 Vancomycin # 2 Abdominal cultures with growth of MSSA, and gram-negative nato of greater than 2 types Blood cultures x2 no growth - Physical Exam General Appearance: alert, no apparent distress EENT: No scleral icterus, No thrush Respiratory: lungs clear, No respiratory distress Cardiac/Chest: regular rate, rhythm, No systolic murmur Extremities: No pedal edema Abdomen: tender (Mild diffusely), other (Incision intact without erythema or drainage; PASTORA drain in left lower quadrant with seropurulent output; in right lower quadrant with serous output) Skin: No rash ICD10 Worksheet Patient Problems: Problems Problem Status Onset Abdominal pain Acute Intestinal perforation Acute Rectal foreign body Acute
--- NOTE | 2016-11-05 21:03 | WOCRNPDOC ---
SHIRA Advanced Assessment Note - Skin Integrity Problem, Advanced Assess Abdomen Dressing Type: Open to Air Closure Description: Dilan (intact) Exudate Characteristic(s): None Site Odor: None - Colostomy Assessment, Advanced Colostomy Stoma Colostomy Appliance Currently in Use: Two Piece Flat, 2 3/4 Stoma Color: Red Stoma Turgor: Moist Stoma Shape: Oval Stoma Height: Protruding Mucocutaneus Junction: Intact (sutures) Colostomy Effluent: Flatus (minimal), Fecal, Pasty, Mixed Fecal/Serosangenous Colostomy Size - Head-to-Toe Length X Width X Depth (cm): 3.9 cm x 4.15 x 1.5 protruding ht Colostomy Details: End (with Nikolas Pouch) Peristomal Skin: Intact Colostomy Comment/Treatment Details: Patient was alert and cooperative with care , with caveat at the initiation of care and first ostomy education session that he felt "kind of out of it from the meds," but would "give it a try." Described and demonstrated colostomy care [id number], responding to patient questions throughout the process. Skin barrier was found to be melting down, exposing .02 cm peristomal skin at proximal aspect. Peristomal tissue was foung to be pink and intact when skin barrier was removed, and patient denied any sensation of discomfort during cleansing. Patient was able to demonstrate opening and closing drainage end of pouch, and verbalized understanding of monitoring pouch for indications for draining or "burping'; will benefit from more instruction and practice with each subsequent pouch change. He gave verbal consent for enrollment in new ostomate support programs. Reported results of consult to bellstaff Kelly; Discussed anticipated needs with Deputy Aponte, in room during visit, and by phone with EBEN Martínez at [facility].
[2016-11-05] MEDS: IBUPROFEN 200 MG TAB PO PRN (21:04)
[2016-11-05] MEDS: QUEtiapine FUMARATE 300 MG TAB PO SCH (21:04)
[2016-11-06] MEDS: GABAPENTIN 400 MG CAP PO SCH ×3 (08:34→21:18)
[2016-11-06] MEDS: FAMOTIDINE 20 MG TAB PO SCH ×2 (08:34→20:36)
[2016-11-06] MEDS: ENOXAPARIN 40 MG/0.4 ML SYR SC SCH (08:34)
[2016-11-06] MEDS: HYDROCODONE/APAP 5/325 TAB PO PRN ×3 (08:34→20:37)
[2016-11-06] MEDS: guaiFENesin 600 MG TAB.ER PO SCH ×2 (08:34→20:37)
[2016-11-06] MEDS: ERTAPENEM 1 GM in NS 100 ML IV SCH (08:58)
[2016-11-06 09:02] LABS: ADD DIFF? YES; ADD MORPH? NO; ADD SCAN? NO; ATYPICAL LYMPHOCYTE FLAG 30 (0-99); FRAGMENT RBC FLAG 0 (0-99); LEFT SHIFT FLG 70 (0-99); LIPEMIA HEMOLYSIS FLAG 80 (0-99); MEAN CELL HEMOGLOBIN 30.5 pg (27.9-34.1); MEAN CELL HEMOGLOBIN CONCENTR. 33.3 g/dL (32.4-36.7); MEAN CELL VOLUME 91.4 fL (81.5-99.8); MEAN PLATELET VOLUME 8.9 fL (8.7-11.7); PLATELET CLUMPS FLAG 0 (0-99); PLATELET COUNT 280 10^3/uL (150-400); RED BLOOD CELL COUNT 3.61 10^6/uL (4.40-6.38); RED CELL DISTRIBUTION WIDTH 12.8 % (11.5-15.2)
--- NOTE | 2016-11-06 09:15 | SOAPPROG ---
SOAP Progress Note Assessment/Plan: Assessment/Plan: - 35yo M s/p ex-lap, washout and end colostomy for perforated colon 2/2 foreign body - Neuro: Pain controlled on oral narcotics alone - Pulm: stable on NC, aggressive pulm toilet - CV: BP stable, NSR - Abd: soft, ND, minTTP. PASTORA serous. Good bowel sounds. tolerating regular diet. - Renal: voiding, UOP appropriate. - ID: WBC down to 9k today which is reassuring. Cont antibiotics. Possibly dc drains tomorrow. 11/02/16 09:50 11/02/16 09:54 11/05/16 09:38 11/06/16 09:14 Subjective: Pain controlled, tolerating food, minimal appetite Objective: Vital Signs Temp Pulse Resp BP Pulse Ox 37.2 C 88 14 120/72 91 L 11/06/16 08:00 11/06/16 08:00 11/06/16 08:00 11/06/16 08:00 11/06/16 08:00 Microbiology 11/01/16 16:36 Gram Stain - Final Abdomen - Aspirate Laboratory Results 11/06/16 08:45 11/04/16 06:30 11/05/16 11/06/16 11/07/16 05:59 05:59 05:59 Intake Total 3468 2200 Output Total 2125 3275 Balance 1343 -1075 PT 17.9 SEC (12.0-15.0) H 11/02/16 12:20 INR 1.48 (0.83-1.16) H 11/02/16 12:20 ICD10 Worksheet Patient Problems: Problems Problem Status Onset Abdominal pain Acute Intestinal perforation Acute Rectal foreign body Acute
[2016-11-06 11:20] LABS: PLATELET ESTIMATE ADEQUATE (ADEQ)
--- NOTE | 2016-11-06 11:59 | PCMIDPN ---
Assessment/Plan: Assessment/Plan: 1. Polymicrobial peritonitis secondary to sigmoid perforation: - self induced injury - s/p wash out 11/01/16 with colectomy/hartmans pouch - Cx with MSSA and two GNR - currently on invanz therapy. - Ongoing improvment in wbc. -Blood cx ngtd - HIV, HCV, HBsAg neg Meds invanz 1g daily Subjective: Intermittent low grade temps. c/o abd fullness and discomfort but is better. denies nausea. some sputum production. feels weak. Objective: Vital Signs Temp Pulse Resp BP Pulse Ox 37.2 C 88 14 120/72 91 L 11/06/16 08:00 11/06/16 08:00 11/06/16 08:00 11/06/16 08:00 11/06/16 08:00 Microbiology 11/01/16 16:36 Gram Stain - Final Abdomen - Aspirate Laboratory Results 11/06/16 08:45 11/04/16 06:30 11/05/16 11/06/16 11/07/16 05:59 05:59 05:59 Intake Total 3468 2200 Output Total 2125 3275 Balance 1343 -1075 - Physical Exam General Appearance: alert, no apparent distress Respiratory: lungs clear (anteriorly) Cardiac/Chest: regular rate, rhythm Extremities: No swelling Abdomen: normal bowel sounds, distended, tender, other (noé drain) Skin: No erythema ICD10 Worksheet Patient Problems: Problems Problem Status Onset Abdominal pain Acute Intestinal perforation Acute Rectal foreign body Acute
[2016-11-06] MEDS: QUEtiapine FUMARATE 300 MG TAB PO SCH (20:36)
[2016-11-07] MEDS: HYDROCODONE/APAP 5/325 TAB PO PRN ×4 (02:44→20:22)
[2016-11-07] MEDS: ENOXAPARIN 40 MG/0.4 ML SYR SC SCH (08:04)
[2016-11-07] MEDS: GABAPENTIN 400 MG CAP PO SCH ×3 (08:05→20:22)
[2016-11-07] MEDS: FAMOTIDINE 20 MG TAB PO SCH ×2 (08:05→20:21)
[2016-11-07] MEDS: guaiFENesin 600 MG TAB.ER PO SCH ×2 (08:05→20:22)
[2016-11-07] MEDS: ERTAPENEM 1 GM in NS 100 ML IV SCH (09:01)
--- NOTE | 2016-11-07 11:51 | PCMIDPN ---
Assessment/Plan: Assessment/Plan: * Polymicrobial peritonitis including MSSA status post self-induced sigmoid perforation with tile: Cultures with growth of MSSA and polymicrobial enteric david not further identified. Clinically improved without significant abdominal pain and white blood cell count has decreased significantly. Continue ertapenem. Monitor clinically over time as will be at high risk for abscess formation given jonny peritoneal contamination. 11/07/16 11:52 Subjective: Patient feeling better. Less abdominal pain. Appetite remains poor. Objective: Vital Signs Temp Pulse Resp BP Pulse Ox 36.7 C 74 12 123/71 H 93 11/07/16 01:06 11/07/16 08:00 11/07/16 08:00 11/07/16 08:00 11/07/16 08:00 Microbiology 11/01/16 16:36 Mycobacterial Smear (DAYA) - Final Abdomen - Aspirate 11/01/16 16:36 Gram Stain - Final Abdomen - Aspirate Laboratory Results 11/06/16 08:45 11/04/16 06:30 11/06/16 11/07/16 11/08/16 05:59 05:59 05:59 Intake Total 2200 2600 Output Total 3275 2425 200 Balance -1075 175 -200 Ertapenem # 7 Abdominal cultures MSSA, Gram-negative nato x2 or more types - Physical Exam General Appearance: alert, no apparent distress EENT: pharynx normal, No scleral icterus Respiratory: lungs clear, No respiratory distress Cardiac/Chest: regular rate, rhythm Abdomen: non-tender, distended (Mild), other (Incision intact without erythema or drainage; serosanguineous drainage from PASTORA x1, serous output from PASTORA x1) ICD10 Worksheet Patient Problems: Problems Problem Status Onset Abdominal pain Acute Intestinal perforation Acute Rectal foreign body Acute
--- NOTE | 2016-11-07 14:30 | SOAPPROG ---
SOAP Progress Note Assessment/Plan: Assessment/Plan: 35 Y incarcerated M s/p laparotomy with sigmoidectomy and end colostomy for FB. Seen and examined with Dr. John. Overall doing well. Ok to d/c superficial PASTORA drain. Defer to Dr. Schneider re: deeper drain. Ostomy consult in progress. Likely d/c tomorrow, possibly with drain. S: eating, pain controlled. drain tubing is annoying. O: alert, nad no wob abd soft inc cdi, no erythema, +arie ostomy bag with soft brown stool contents drains serosanguinous, scant 11/07/16 14:28 Objective: Vital Signs Temp Pulse Resp BP Pulse Ox 36.7 C 74 12 123/71 H 93 11/07/16 01:06 11/07/16 08:00 11/07/16 08:00 11/07/16 08:00 11/07/16 08:00 Microbiology 11/02/16 13:45 Blood Culture - Final Blood 11/01/16 16:36 Gram Stain - Final Abdomen - Aspirate 11/01/16 16:36 Mycobacterial Smear (DAYA) - Final Abdomen - Aspirate Laboratory Results 11/06/16 08:45 11/04/16 06:30 11/06/16 11/07/16 11/08/16 05:59 05:59 05:59 Intake Total 2200 2600 Output Total 9372 8804 225 Balance -1075 175 -225 PT 17.9 SEC (12.0-15.0) H 11/02/16 12:20 INR 1.48 (0.83-1.16) H 11/02/16 12:20 ICD10 Worksheet Patient Problems: Problems Problem Status Onset Abdominal pain Acute Intestinal perforation Acute Rectal foreign body Acute
--- NOTE | 2016-11-07 18:21 | WOCRNPDOC ---
SHIRA Advanced Assessment Note - Colostomy Assessment, Advanced Left Abdomen Colostomy Stoma Colostomy Appliance Intact: Yes Colostomy Appliance Currently in Use: Two Piece Flat, 2 3/4 Stoma Color: Red Stoma Turgor: Moist Stoma Height: Protruding Mucocutaneus Junction: Intact Colostomy Effluent: Fecal, Pasty Colostomy Comment/Treatment Details: Colostomy appliance in place, clean, dry and intact. Stoma has a bright red, healthy appearance. Checked in with patient regarding any questions or concerns at this time. He states that he does not. Education packet #2 was provided, with acknowledgement by deputy on duty that all materiel and provided supplies will be delivered to the Medical Department at [facility] upon patient's discharge.
[2016-11-07] MEDS: QUEtiapine FUMARATE 300 MG TAB PO SCH (20:21)
[2016-11-08] MEDS: HYDROCODONE/APAP 5/325 TAB PO PRN ×3 (04:40→20:57)
[2016-11-08 04:58] LABS: ADD DIFF? YES; ADD MORPH? NO; FRAGMENT RBC FLAG 0 (0-99); HEMATOCRIT 35.3 % (40.0-51.0); HEMOGLOBIN 12.1 g/dL (13.7-17.5); LEFT SHIFT FLG 60 (0-99); LIPEMIA HEMOLYSIS FLAG 90 (0-99); MEAN CELL HEMOGLOBIN 30.6 pg (27.9-34.1); MEAN CELL HEMOGLOBIN CONCENTR. 34.3 g/dL (32.4-36.7); MEAN CELL VOLUME 89.4 fL (81.5-99.8); MEAN PLATELET VOLUME 8.4 fL (8.7-11.7); PLATELET CLUMPS FLAG 0 (0-99); PLATELET COUNT 368 10^3/uL (150-400); RED BLOOD CELL COUNT 3.95 10^6/uL (4.40-6.38); RED CELL DISTRIBUTION WIDTH 12.8 % (11.5-15.2)
[2016-11-08 05:08] LABS: ADD SCAN? NO; ATYPICAL LYMPHOCYTE FLAG 130 (0-99)
[2016-11-08 05:13] LABS: ALANINE AMINOTRANSFERASE 31 IU/L (21-72); ALBUMIN 3.1 g/dL (3.5-5.0); ALKALINE PHOSPHATASE 90 IU/L (38-126); ASPARTATE AMINOTRANSFERASE 25 IU/L (17-59); BILIRUBIN,TOTAL 0.6 mg/dL (0.1-1.4); CALCIUM 8.6 mg/dL (8.5-10.4); CARBON DIOXIDE 28 mEq/l (22-31); CHLORIDE 104 mEq/L (97-110); CREATININE 0.8 mg/dL (0.7-1.3); GLOMERULAR FILTRATION RATE > 60; GLUCOSE 88 mg/dL (70-100); SODIUM 142 mEq/L (134-144); TOTAL PROTEIN 6.5 g/dL (6.3-8.2)
[2016-11-08 06:08] LABS: PLATELET ESTIMATE ADEQUATE (ADEQ); TOXIC GRANULATION PRESENT
[2016-11-08 06:30] LABS: ANION GAP 10 mEq/L (8-16); POTASSIUM 4.7 mEq/L (3.5-5.2)
[2016-11-08] MEDS: FAMOTIDINE 20 MG TAB PO SCH ×2 (09:18→20:57)
[2016-11-08] MEDS: ERTAPENEM 1 GM in NS 100 ML IV SCH (09:19)
[2016-11-08] MEDS: ENOXAPARIN 40 MG/0.4 ML SYR SC SCH (09:19)
[2016-11-08] MEDS: guaiFENesin 600 MG TAB.ER PO SCH ×2 (09:19→20:58)
[2016-11-08] MEDS: GABAPENTIN 400 MG CAP PO SCH ×3 (09:19→20:58)
--- NOTE | 2016-11-08 10:47 | SOAPPROG ---
SOAP Progress Note Assessment/Plan: Assessment/Plan: - 35yo M s/p ex-lap, washout and end colostomy for perforated colon 2/2 foreign body - Neuro: Pain controlled on oral narcotics alone - Pulm: stable on NC, aggressive pulm toilet - CV: BP stable, NSR - Abd: soft, ND, minTTP. JPs removed, stoma functioning, has been working with ostomy nurse and is making progress. - Renal: voiding, UOP appropriate. - ID: WBC around 9-10, will transition to PO abx today - Dispo: back to shelter today, RTC for staple removal. Will plan take down 6-8 weeks. 11/02/16 09:50 11/02/16 09:54 11/05/16 09:38 11/06/16 09:14 11/08/16 10:45 Subjective: Doing well Objective: Vital Signs Temp Pulse Resp BP Pulse Ox 36.9 C 75 15 114/68 93 11/08/16 07:32 11/08/16 07:32 11/08/16 07:32 11/08/16 07:32 11/08/16 07:32 Microbiology 11/02/16 15:00 Blood Culture - Final Blood 11/02/16 13:45 Blood Culture - Final Blood 11/01/16 16:36 Gram Stain - Final Abdomen - Aspirate Laboratory Results 11/08/16 04:45 11/08/16 04:45 11/07/16 11/08/16 11/09/16 05:59 05:59 05:59 Intake Total 2600 1550 Output Total 2425 1810 Balance 175 -260 PT 17.9 SEC (12.0-15.0) H 11/02/16 12:20 INR 1.48 (0.83-1.16) H 11/02/16 12:20 ICD10 Worksheet Patient Problems: Problems Problem Status Onset Abdominal pain Acute Intestinal perforation Acute Rectal foreign body Acute
[2016-11-08] MEDS ORDERED: IOPAMIDOL (ISOVUE-300) 100 ML BTL IV ONE (11:14)
--- NOTE | 2016-11-08 14:22 | PCMIDPN ---
Assessment/Plan: Assessment: Peritonitis and sepsis following sigmoid perforation. Significant peritoneal soiling. Patient has been covered with ertapenem monotherapy. He is growing MSSA as well as polymicrobial g negatives. The goal is to release him on good oral therapy that will good reasonable levels in the peritoneal cavity. However he has increased focal right lower quadrant pain today. This may be related to drain removal however he is at high risk for development intra- abdominal abscesses following the soiling. Will repeat a CT scan today prior to decision on change to oral antibiotics and discharge. Plan: 1. Continue ertapenem for now. 2. Agree with abdominal pelvic CT scan with contrast. 3. Follow clinical course. Subjective: Patient is lying in his hospital bed. Not very talkative. Complains of right lower quadrant pain. Denies left lower quadrant pain. No fevers. Objective: Ertapenem # 8 Vital Signs Temp Pulse Resp BP Pulse Ox 36.9 C 80 14 113/66 95 11/08/16 11:39 11/08/16 11:39 11/08/16 11:39 11/08/16 11:39 11/08/16 11:39 Microbiology 11/02/16 15:00 Blood Culture - Final Blood 11/02/16 13:45 Blood Culture - Final Blood 11/01/16 16:36 Gram Stain - Final Abdomen - Aspirate Laboratory Results 11/08/16 04:45 11/08/16 04:45 11/07/16 11/08/16 11/09/16 05:59 05:59 05:59 Intake Total 2600 1550 Output Total 2425 1810 Balance 175 -260 - Physical Exam General Appearance: WD/WN, alert, no apparent distress, non-toxic Respiratory: lungs clear, normal breath sounds, No respiratory distress Cardiac/Chest: regular rate, rhythm, No tachycardia Abdomen: soft, other (Ostomy healthy appearing), No non-tender (Tenderness right lower quadrant), No mass Skin: normal color, warm/dry, No rash Neuro/Psych: alert, normal mood/affect, oriented x 3 ICD10 Worksheet Patient Problems: Problems Problem Status Onset Abdominal pain Acute Intestinal perforation Acute Rectal foreign body Acute
[2016-11-08] MEDS: IBUPROFEN 200 MG TAB PO PRN (15:13)
[2016-11-08] MEDS: QUEtiapine FUMARATE 300 MG TAB PO SCH (20:58)
[2016-11-09] MEDS: GABAPENTIN 400 MG CAP PO SCH ×3 (07:39→21:07)
[2016-11-09] MEDS: ENOXAPARIN 40 MG/0.4 ML SYR SC SCH (07:39)
[2016-11-09] MEDS: guaiFENesin 600 MG TAB.ER PO SCH ×2 (07:40→21:07)
[2016-11-09] MEDS: FAMOTIDINE 20 MG TAB PO SCH ×2 (07:40→21:07)
[2016-11-09] MEDS: HYDROCODONE/APAP 5/325 TAB PO PRN ×3 (07:40→18:14)
[2016-11-09] MEDS: ERTAPENEM 1 GM in NS 100 ML IV SCH (09:04)
--- NOTE | 2016-11-09 09:41 | SOAPPROG ---
[facility] Progress Note Assessment/Plan: Assessment/Plan: - 35yo M s/p ex-lap, washout and end colostomy for perforated colon 2/2 foreign body - Neuro: Pain controlled on oral narcotics alone, will add some NSAIDs for back pain. Anticipate this is from being sedentary - Pulm: stable on NC, aggressive pulm toilet - CV: BP stable, NSR - Abd: soft, ND, minTTP. Stoma functioning appropriately. CT yesterday showed small 4x2cm abscess aboce rectal stump, not amenable to perc drainage. Will cont IV abx for the time being. - Renal: voiding, UOP appropriate. - ID: Cont IV abx, likely re-scan next week to eval abscess - Dispo: Cont IV abx, re-scan next week to eval. Showering ok, ambulation also approved from . 11/02/16 09:50 11/02/16 09:54 11/05/16 09:38 11/06/16 09:14 11/08/16 10:45 11/09/16 09:39 Subjective: C/o back pain today Objective: Vital Signs Temp Pulse Resp BP Pulse Ox 36.9 C 83 16 120/71 91 L 11/09/16 07:25 11/09/16 07:25 11/09/16 07:25 11/09/16 07:25 11/09/16 07:25 Microbiology 11/01/16 16:36 Gram Stain - Final Abdomen - Aspirate Anaerobic Culture - Final Staphylococcus Aureus Gram Neg Rods 2 Or More Types Laboratory Results 11/08/16 04:45 11/08/16 04:45 11/08/16 11/09/16 11/10/16 05:59 05:59 05:59 Intake Total 1550 1000 Output Total 1810 575 Balance -260 1000 -575 PT 17.9 SEC (12.0-15.0) H 11/02/16 12:20 INR 1.48 (0.83-1.16) H 11/02/16 12:20 ICD10 Worksheet Patient Problems: Problems Problem Status Onset Abdominal pain Acute Intestinal perforation Acute Rectal foreign body Acute
[2016-11-09] MEDS: IBUPROFEN 200 MG TAB PO PRN (11:00)
--- NOTE | 2016-11-09 19:15 | PCMIDPN ---
Assessment/Plan: Assessment/Plan: * Polymicrobial peritonitis including MSSA status post self-induced sigmoid perforation with tile: Pelvic abscess noted on CT scan yesterday. Will continue ertapenem and plan repeat imaging next week to reassess abscess which is in location precluding percutaneous drainage. 11/09/16 19:13 Subjective: Patient without specific complaints other than small amount of drainage from lower incision. Objective: Vital Signs Temp Pulse Resp BP Pulse Ox 36.4 C 73 16 129/73 H 94 11/09/16 16:14 11/09/16 16:14 11/09/16 16:14 11/09/16 16:14 11/09/16 16:14 Microbiology 11/01/16 16:36 Gram Stain - Final Abdomen - Aspirate Anaerobic Culture - Final Staphylococcus Aureus Gram Neg Rods 2 Or More Types Laboratory Results 11/08/16 04:45 11/08/16 04:45 11/08/16 11/09/16 11/10/16 05:59 05:59 05:59 Intake Total 1550 1000 750 Output Total 1810 875 Balance -260 1000 -125 Ertapenem # 9 CT scan showing 4 x 2 cm pelvic abscess above rectal stump - Physical Exam General Appearance: alert, no apparent distress EENT: No scleral icterus, No thrush Cardiac/Chest: regular rate, rhythm, No systolic murmur Abdomen: non-tender, other (Small amount of serosanguineous drainage from lower incision and prior drain site), No distended Skin: No rash ICD10 Worksheet Patient Problems: Problems Problem Status Onset Abdominal pain Acute Intestinal perforation Acute Rectal foreign body Acute
[2016-11-09] MEDS: QUEtiapine FUMARATE 300 MG TAB PO SCH (21:06)
[2016-11-10] MEDS: HYDROCODONE/APAP 5/325 TAB PO PRN ×4 (05:31→20:40)
[2016-11-10] MEDS: ERTAPENEM 1 GM in NS 100 ML IV SCH (08:23)
[2016-11-10] MEDS: guaiFENesin 600 MG TAB.ER PO SCH ×2 (08:24→20:40)
[2016-11-10] MEDS: GABAPENTIN 400 MG CAP PO SCH ×3 (08:24→20:39)
[2016-11-10] MEDS: IBUPROFEN 200 MG TAB PO PRN ×2 (08:24→12:53)
[2016-11-10] MEDS: FAMOTIDINE 20 MG TAB PO SCH ×2 (08:25→20:40)
[2016-11-10] MEDS: ENOXAPARIN 40 MG/0.4 ML SYR SC SCH (08:25)
--- NOTE | 2016-11-10 12:46 | SOAPPROG ---
SOAP Progress Note Assessment/Plan: Assessment: 35yo M s/p ex-lap, washout and end colostomy for perforated colon 2/ 2 foreign body Pain controlled c PO pain meds Continue ambulation and IS Full return of bowel function CT showed small 4x2cm abscess above rectal stump, not amenable to perc drain. Repeat CT next week Continue IV antibiotics Small midline wound fat necrosis - 1 staple removed and packed with 1/4" nugauze - will change tomorrow S:doing well this morning. no complaints other than some pain with walking. new drainage from midline wound O: laying in bed, comfortable, accompanied by support staff, no acute distress CTAB anteriorly, no increased WOB RRR + BS, soft, nt, nd. Midline arie intact. small area of serous drainage from inferior wound - probed with cotton swab and opening appx 1cm deep. removed one staple, irrigated cavity and packed with plain gauze. no undermining or tunneling. no purulence. no surrounding erythema. Objective: Vital Signs Temp Pulse Resp BP Pulse Ox 36.4 C 80 26 H 124/76 H 93 11/10/16 07:41 11/10/16 07:41 11/10/16 07:41 11/10/16 07:41 11/10/16 07:41 Laboratory Results 11/08/16 04:45 11/08/16 04:45 11/09/16 11/10/16 11/11/16 05:59 05:59 05:59 Intake Total 1000 1210 Output Total 1775 Balance 1000 -565 PT 17.9 SEC (12.0-15.0) H 11/02/16 12:20 INR 1.48 (0.83-1.16) H 11/02/16 12:20 ICD10 Worksheet Patient Problems: Problems Problem Status Onset Abdominal pain Acute Intestinal perforation Acute Rectal foreign body Acute
[2016-11-10] MEDS: QUEtiapine FUMARATE 300 MG TAB PO SCH (20:40)
[2016-11-11] MEDS: HYDROCODONE/APAP 5/325 TAB PO PRN ×3 (06:03→19:58)
[2016-11-11] MEDS: IBUPROFEN 200 MG TAB PO PRN ×3 (06:04→19:58)
[2016-11-11] MEDS: FAMOTIDINE 20 MG TAB PO SCH ×2 (09:00→19:58)
[2016-11-11] MEDS: guaiFENesin 600 MG TAB.ER PO SCH ×2 (09:00→19:58)
[2016-11-11] MEDS: ERTAPENEM 1 GM in NS 100 ML IV SCH (09:00)
[2016-11-11] MEDS: GABAPENTIN 400 MG CAP PO SCH ×3 (09:00→21:48)
[2016-11-11] MEDS: ENOXAPARIN 40 MG/0.4 ML SYR SC SCH (09:01)
--- NOTE | 2016-11-11 11:17 | SOAPPROG ---
SOAP Progress Note Assessment/Plan: Assessment: 35yo M s/p ex-lap, washout and end colostomy for perforated colon 2/ 2 foreign body Pain controlled c PO pain meds Continue ambulation and IS Full return of bowel function CT showed small 4x2cm abscess above rectal stump, not amenable to perc drain. Repeat CT next week Continue IV antibiotics Small midline wound fat necrosis - improving. change packing daily. change outer dressing PRN S:doing well this morning. no new complaints this morning, but he also just woke up O: laying in bed, comfortable, accompanied by shellfish dredge operator, no acute distress CTAB anteriorly, no increased WOB RRR + BS, soft, nt, nd. firm stool in appliance. Midline arie intact. packing removed and wound irrigated. no purulence or surrounding erythema. no tunneling. repacked with nugauze Objective: Vital Signs Temp Pulse Resp BP Pulse Ox 36.6 C 81 16 124/76 H 93 11/11/16 07:44 11/11/16 07:44 11/11/16 07:44 11/11/16 07:44 11/11/16 07:44 Laboratory Results 11/08/16 04:45 11/08/16 04:45 11/10/16 11/11/16 11/12/16 05:59 05:59 05:59 Intake Total 1210 500 Output Total 1775 Balance -565 500 PT 17.9 SEC (12.0-15.0) H 11/02/16 12:20 INR 1.48 (0.83-1.16) H 11/02/16 12:20 ICD10 Worksheet Patient Problems: Problems Problem Status Onset Abdominal pain Acute Intestinal perforation Acute Rectal foreign body Acute
[2016-11-11] MEDS: QUEtiapine FUMARATE 300 MG TAB PO SCH (21:48)
[2016-11-12] MEDS: HYDROCODONE/APAP 5/325 TAB PO PRN ×4 (05:25→21:54)
[2016-11-12] MEDS: ERTAPENEM 1 GM in NS 100 ML IV SCH (08:13)
[2016-11-12] MEDS: GABAPENTIN 400 MG CAP PO SCH ×3 (08:15→21:54)
[2016-11-12] MEDS: FAMOTIDINE 20 MG TAB PO SCH ×2 (08:15→21:54)
[2016-11-12] MEDS: guaiFENesin 600 MG TAB.ER PO SCH ×2 (08:15→21:55)
[2016-11-12] MEDS: ENOXAPARIN 40 MG/0.4 ML SYR SC SCH (08:15)
[2016-11-12 09:14] LABS: ADD DIFF? YES; ADD MORPH? NO; ADD SCAN? NO; ATYPICAL LYMPHOCYTE FLAG 40 (0-99); FRAGMENT RBC FLAG 0 (0-99); HEMOGLOBIN 11.7 g/dL (13.7-17.5); LEFT SHIFT FLG 30 (0-99); LIPEMIA HEMOLYSIS FLAG 80 (0-99); MEAN CELL HEMOGLOBIN 30.5 pg (27.9-34.1); MEAN CELL HEMOGLOBIN CONCENTR. 32.5 g/dL (32.4-36.7); MEAN CELL VOLUME 93.8 fL (81.5-99.8); MEAN PLATELET VOLUME 8.2 fL (8.7-11.7); PLATELET CLUMPS FLAG 0 (0-99); PLATELET COUNT 463 10^3/uL (150-400); RED BLOOD CELL COUNT 3.84 10^6/uL (4.40-6.38)
[2016-11-12 10:27] LABS: PLATELET ESTIMATE INCREASED (ADEQ)
[2016-11-12 10:28] LABS: TOXIC GRANULATION PRESENT
[2016-11-12] MEDS: IBUPROFEN 200 MG TAB PO PRN (12:27)
[2016-11-12] MEDS ORDERED: IOPAMIDOL (ISOVUE-300) 100 ML BTL IV ONE (14:51)
--- NOTE | 2016-11-12 16:56 | SOAPPROG ---
SOAP Progress Note Assessment/Plan: Assessment/Plan: - 35yo M s/p ex-lap, washout and end colostomy for perforated colon 2/2 foreign body -Continues to make progress. Ostomy functioning appropriately. Inferior border of incision opened up, minimal drainage. WBC 9k today. Repeat CT shows smaller abscess, will discuss with ID but likely plan on Tx to PO abx and d/c back to nursing home sometime this week. 11/02/16 09:50 11/02/16 09:54 11/05/16 09:38 11/06/16 09:14 11/08/16 10:45 11/09/16 09:39 11/12/16 16:55 Subjective: Continues to do well Objective: Vital Signs Temp Pulse Resp BP Pulse Ox 36.6 C 79 16 117/73 93 11/12/16 15:40 11/12/16 15:40 11/12/16 15:40 11/12/16 15:40 11/12/16 15:40 Laboratory Results 11/12/16 09:06 11/08/16 04:45 11/11/16 11/12/16 11/13/16 05:59 05:59 05:59 Intake Total 500 350 300 Output Total 925 700 Balance 500 -575 -400 PT 17.9 SEC (12.0-15.0) H 11/02/16 12:20 INR 1.48 (0.83-1.16) H 11/02/16 12:20 ICD10 Worksheet Patient Problems: Problems Problem Status Onset Abdominal pain Acute Intestinal perforation Acute Rectal foreign body Acute
--- NOTE | 2016-11-12 17:54 | PCMIDPN ---
Assessment/Plan: Assessment: Peritonitis and sepsis following sigmoid perforation. Significant peritoneal soiling. Patient has been covered with ertapenem monotherapy. He is growing MSSA as well as polymicrobial gram negatives. CT follow up 4 days ago revealed abscess presence - so his discharge was delayed for need of ongoing IV abx treatment. Clinically doing well. Repeat CT scan again today showed further decrease in the size of the two collections. Agree with continued IV abx therapy for now. Possible transition to PO abx by the end of the week. Plan: 1. Continue ertapenem for now. 11/12/16 23:39 Subjective: Patient remains in good spirits. No new complaints. No fevers. Tolerating ertapenem. Objective: ertapenem # 12 Vital Signs Temp Pulse Resp BP Pulse Ox 36.6 C 79 16 117/73 93 11/12/16 15:40 11/12/16 15:40 11/12/16 15:40 11/12/16 15:40 11/12/16 15:40 Laboratory Results 11/12/16 09:06 11/08/16 04:45 11/11/16 11/12/16 11/13/16 05:59 05:59 05:59 Intake Total 500 350 800 Output Total 925 900 Balance 500 -575 -100 - Physical Exam General Appearance: WD/WN, alert, no apparent distress, non-toxic Respiratory: lungs clear, normal breath sounds, No respiratory distress Cardiac/Chest: regular rate, rhythm, No tachycardia Abdomen: non-tender, soft, No mass Skin: normal color, warm/dry, No rash ICD10 Worksheet Patient Problems: Problems Problem Status Onset Abdominal pain Acute Intestinal perforation Acute Rectal foreign body Acute
[2016-11-12] MEDS: QUEtiapine FUMARATE 300 MG TAB PO SCH (21:54)
[2016-11-13] MEDS: HYDROCODONE/APAP 5/325 TAB PO PRN ×4 (05:53→20:44)
[2016-11-13] MEDS: IBUPROFEN 200 MG TAB PO PRN ×3 (09:10→20:44)
[2016-11-13] MEDS: ERTAPENEM 1 GM in NS 100 ML IV SCH (09:10)
[2016-11-13] MEDS: ENOXAPARIN 40 MG/0.4 ML SYR SC SCH (09:10)
[2016-11-13] MEDS: FAMOTIDINE 20 MG TAB PO SCH ×2 (09:11→20:44)
[2016-11-13] MEDS: GABAPENTIN 400 MG CAP PO SCH ×3 (09:11→20:45)
[2016-11-13] MEDS: guaiFENesin 600 MG TAB.ER PO SCH (10:03)
--- NOTE | 2016-11-13 14:10 | PCMIDPN ---
Assessment/Plan: Assessment/Plan: 1. Polymicrobial peritonitis secondary to sigmoid perforation: - self induced injury - s/p wash out 11/01/16 with colectomy/hartmans pouch - Cx with MSSA and two GNR - currently on invanz therapy. -Blood cx ngtd - HIV, HCV, HBsAg neg -f/u Ct abd: noted with smaller collections compared to previously. -Continue with therapy for now. Meds invanz 1g daily Subjective: afebrile. denies sob, less abd pain. Objective: Vital Signs Temp Pulse Resp BP Pulse Ox 36.9 C 86 18 105/76 93 11/13/16 08:01 11/13/16 08:01 11/13/16 08:01 11/13/16 08:01 11/13/16 08:01 Microbiology 11/01/16 16:36 Mycobacterial Smear (DAYA) - Final Abdomen - Aspirate Laboratory Results 11/12/16 09:06 11/08/16 04:45 11/12/16 11/13/16 11/14/16 05:59 05:59 05:59 Intake Total 350 1350 Output Total 925 1900 Balance -575 -550 - Physical Exam General Appearance: alert, no apparent distress Respiratory: lungs clear Cardiac/Chest: regular rate, rhythm Extremities: No swelling Abdomen: normal bowel sounds, soft, distended (mild), tender (on left side. colostomy present. arie presnt) Skin: No erythema ICD10 Worksheet Patient Problems: Problems Problem Status Onset Abdominal pain Acute Intestinal perforation Acute Rectal foreign body Acute
--- NOTE | 2016-11-13 15:26 | SOAPPROG ---
SOAP Progress Note Assessment/Plan: Assessment/Plan: - 35yo M s/p ex-lap, washout and end colostomy for perforated colon 2/2 foreign body - CT yesterday showed smaller fluid collection in pelvis and patient continues to make clinical progress. At this time, planning to keep until Saturday and then transition to PO abx and dc back to shelter unless has some clinical decline in the meantime. 11/02/16 09:50 11/02/16 09:54 11/05/16 09:38 11/06/16 09:14 11/08/16 10:45 11/09/16 09:39 11/12/16 16:55 11/13/16 15:25 Subjective: No complaints Objective: Vital Signs Temp Pulse Resp BP Pulse Ox 36.8 C 82 18 120/60 95 11/13/16 15:11 11/13/16 15:11 11/13/16 15:11 11/13/16 15:11 11/13/16 15:11 Microbiology 11/01/16 16:36 Mycobacterial Smear (DAYA) - Final Abdomen - Aspirate Laboratory Results 11/12/16 09:06 11/08/16 04:45 11/12/16 11/13/16 11/14/16 05:59 05:59 05:59 Intake Total 350 1350 Output Total 925 1900 600 Balance -575 -550 -600 PT 17.9 SEC (12.0-15.0) H 11/02/16 12:20 INR 1.48 (0.83-1.16) H 11/02/16 12:20 ICD10 Worksheet Patient Problems: Problems Problem Status Onset Abdominal pain Acute Intestinal perforation Acute Rectal foreign body Acute
[2016-11-13] MEDS: QUEtiapine FUMARATE 300 MG TAB PO SCH (20:44)
[2016-11-14] MEDS: ENOXAPARIN 40 MG/0.4 ML SYR SC SCH (09:17)
[2016-11-14] MEDS: FAMOTIDINE 20 MG TAB PO SCH ×2 (09:17→20:53)
[2016-11-14] MEDS: GABAPENTIN 400 MG CAP PO SCH ×3 (09:17→20:52)
[2016-11-14] MEDS: ERTAPENEM 1 GM in NS 100 ML IV SCH (09:17)
[2016-11-14] MEDS: HYDROCODONE/APAP 5/325 TAB PO PRN ×3 (09:25→21:48)
[2016-11-14] MEDS: IBUPROFEN 200 MG TAB PO PRN (14:35)
--- NOTE | 2016-11-14 16:01 | PCMIDPN ---
Assessment/Plan: Assessment/Plan: * Polymicrobial peritonitis including MSSA status post self-induced sigmoid perforation with tile: Repeat abdomen/pelvis CT on 11/12/2016 showing improvement with decreasing size of intra-abdominal collections but not fully resolved. Will continue ertapenem through end of this week with plans to continue oral therapy for 2 weeks post completion of IV therapy. Regimen such as Augmentin and levofloxacin would be considered based on culture findings. 11/14/16 15:59 Subjective: Patient without complaints. No abdominal pain. Objective: Vital Signs Temp Pulse Resp BP Pulse Ox 36.6 C 76 14 128/80 H 95 11/14/16 15:00 11/14/16 15:00 11/14/16 15:00 11/14/16 15:00 11/14/16 15:00 Microbiology 11/01/16 16:36 Mycobacterial Smear (DAYA) - Final Abdomen - Aspirate Laboratory Results 11/12/16 09:06 11/08/16 04:45 11/13/16 11/14/16 11/15/16 05:59 05:59 05:59 Intake Total 1350 1000 1000 Output Total 1900 1100 Balance -550 -100 1000 Ertapenem # 14 CT scan abdomen and pelvis 11/12/2016 reviewed by me showing residual 15 x 12 mm collection above Nikolas's pouch and 29 x 34 mm interloop collections; both are decreased in size relative to prior scan - Physical Exam General Appearance: alert, no apparent distress EENT: No scleral icterus, No thrush Respiratory: lungs clear, No respiratory distress Cardiac/Chest: regular rate, rhythm Abdomen: non-tender, other (Staple line intact with small open area which is packed; no surrounding erythema), No distended Skin: No rash ICD10 Worksheet Patient Problems: Problems Problem Status Onset Abdominal pain Acute Intestinal perforation Acute Rectal foreign body Acute
[2016-11-14] MEDS: QUEtiapine FUMARATE 300 MG TAB PO SCH (20:53)
[2016-11-15] MEDS: HYDROCODONE/APAP 5/325 TAB PO PRN ×3 (03:15→18:41)
[2016-11-15] MEDS: GABAPENTIN 400 MG CAP PO SCH ×3 (09:50→20:51)
[2016-11-15] MEDS: ENOXAPARIN 40 MG/0.4 ML SYR SC SCH (09:50)
[2016-11-15] MEDS: ERTAPENEM 1 GM in NS 100 ML IV SCH (09:50)
[2016-11-15] MEDS: FAMOTIDINE 20 MG TAB PO SCH ×2 (09:50→20:51)
[2016-11-15 12:19] LABS: % IMMATURE GRANULYOCYTES 1.5 % (0.0-1.1); ABSOLUTE IMMATURE GRANULOCYTES 0.12 10^3/uL (0.00-0.10); ADD DIFF? NO; ADD MORPH? NO; ADD SCAN? NO; ATYPICAL LYMPHOCYTE FLAG 50 (0-99); FRAGMENT RBC FLAG 0 (0-99); HEMATOCRIT 35.3 % (40.0-51.0); LEFT SHIFT FLG 10 (0-99); LIPEMIA HEMOLYSIS FLAG 90 (0-99); MEAN CELL VOLUME 91.2 fL (81.5-99.8); MEAN PLATELET VOLUME 8.3 fL (8.7-11.7); PLATELET CLUMPS FLAG 0 (0-99); PLATELET COUNT 482 10^3/uL (150-400); RED BLOOD CELL COUNT 3.87 10^6/uL (4.40-6.38); RED CELL DISTRIBUTION WIDTH 12.8 % (11.5-15.2)
--- NOTE | 2016-11-15 15:28 | SOAPPROG ---
SOAP Progress Note Assessment/Plan: Assessment/Plan: - 35yo M s/p ex-lap, washout and end colostomy for perforated colon 2/2 foreign body - Continues to progress clinically. Upset that he isnt able to shower alone. Pain is well controlled. WBC normal. Will plan for addl Invanz dose tomorrow AM then transition to augmentin levaquin per ID for additional 2 weeks. 11/02/16 09:50 11/02/16 09:54 11/05/16 09:38 11/06/16 09:14 11/08/16 10:45 11/09/16 09:39 11/12/16 16:55 11/13/16 15:25 11/15/16 15:26 11/15/16 15:27 Subjective: Grumpy, but pain appears well controlled. Objective: Vital Signs Temp Pulse Resp BP Pulse Ox 36.6 C 66 18 120/73 95 11/15/16 07:56 11/15/16 07:56 11/15/16 07:56 11/15/16 07:56 11/15/16 07:56 Laboratory Results 11/15/16 12:00 11/08/16 04:45 11/14/16 11/15/16 11/16/16 05:59 05:59 05:59 Intake Total 1000 1155 320 Output Total 1100 950 Balance -100 205 320 PT 17.9 SEC (12.0-15.0) H 11/02/16 12:20 INR 1.48 (0.83-1.16) H 11/02/16 12:20 ICD10 Worksheet Patient Problems: Problems Problem Status Onset Abdominal pain Acute Intestinal perforation Acute Rectal foreign body Acute
[2016-11-15] MEDS: IBUPROFEN 200 MG TAB PO PRN ×2 (15:36→20:51)
[2016-11-15] MEDS: QUEtiapine FUMARATE 300 MG TAB PO SCH (20:51)
--- NOTE | 2016-11-16 06:49 | PDIAF ---
- Diagnosis Diagnosis: Rectal Perforation, sepsis Code Status: Full Code - Medication Management Discharge Medications: Medications to Continue on Transfer Gabapentin [Neurontin] 1,200 mg PO TID 11/01/16 [Last Taken 11/01/16] Herbals/Supplements -Info Only 1 ea PO DAILY 11/01/16 [Last Taken 11/01/16] QUEtiapine FUMARATE [Seroquel 300mg (*)] 300 mg PO HS 11/01/16 [Last Taken 10/31] Amoxicillin/Clavulanate Pot [Augmentin 875 MG TAB (*)] 875 mg PO BID #28 tab 05/24 [Last Taken Unknown] Hydrocodone/APAP 5/325 [[place] 5/325 (*)] 1 - 2 tab PO Q4HRS PRN #0 tab 11/15/16 [Last Taken Unknown] levOFLOXACIN [Levaquin] 500 mg PO DAILY #14 tablet 11/15/16 [Last Taken Unknown] Halfway Antibiotics: yes, augmentin and levaquin Halfway Antibiotic Stop Date: 11/30/16 Discharge Medications: Refer to the Discharge Home Medication list for PRN reason. - Orders Services needed: Registered Nurse Diet Recommendation: no restrictions on diet Diet Texture: Regular Texture Diet Sutures/[place] Site: arie to midline, will be removed next week in clinic - Follow Up Care Current Providers and Referrals: José Schneider MD [Medical Doctor] - follow up in 1 week (staple removal, general post-operative check. ) Patient,NotPresent [Unknown] - As per Instructions
[2016-11-16] MEDS: HYDROCODONE/APAP 5/325 TAB PO PRN (07:25)
--- NOTE | 2016-11-16 07:46 | SOAPPROG ---
SOAP Progress Note Assessment/Plan: Assessment/Plan: - 35yo M s/p ex-lap, washout and end colostomy for perforated colon 2/2 foreign body - Looking good, abdomen is soft and he is afebrile. Will give last dose of Invanz this AM and transition to PO augmentin and levaquin with planned dc today. 11/02/16 09:50 11/02/16 09:54 11/05/16 09:38 11/06/16 09:14 11/08/16 10:45 11/09/16 09:39 11/12/16 16:55 11/13/16 15:25 11/15/16 15:26 11/15/16 15:27 11/16/16 07:46 Subjective: In better spirits today. Pain controlled. Objective: Vital Signs Temp Pulse Resp BP Pulse Ox 36.6 C 72 16 112/69 94 11/16/16 00:00 11/16/16 00:00 11/16/16 00:00 11/16/16 00:00 11/16/16 00:00 Laboratory Results 11/15/16 12:00 11/08/16 04:45 11/15/16 11/16/16 11/17/16 05:59 05:59 05:59 Intake Total 1155 800 Output Total 950 1900 Balance 205 -1100 PT 17.9 SEC (12.0-15.0) H 11/02/16 12:20 INR 1.48 (0.83-1.16) H 11/02/16 12:20 ICD10 Worksheet Patient Problems: Problems Problem Status Onset Abdominal pain Acute Intestinal perforation Acute Rectal foreign body Acute
[2016-11-16] MEDS: ERTAPENEM 1 GM in NS 100 ML IV SCH (08:38)
[2016-11-16] MEDS: FAMOTIDINE 20 MG TAB PO SCH (08:38)
[2016-11-16] MEDS: GABAPENTIN 400 MG CAP PO SCH (08:38)
[2016-11-16] MEDS: ENOXAPARIN 40 MG/0.4 ML SYR SC SCH (08:39)
[2016-11-16 09:00] VITALS: BP 128/80; PULSE 76; RESP 17; TEMP 97.6; O2SAT 95
== END 2016-11-16 10:22 | DRG 853 ==
LOC: EDUNIT# → EDBD → F2N 18:16 → F3E 11-08 17:42
PROVIDERS: ADMIT Surgery; ATTEND Surgery
PROC: 0DBN0ZZ Excision of Sigmoid Colon, Open Approach (ICD-10-PCS; principal; 2016-11-01 13:15)
PROC: 0D1N0Z4 Bypass Sigmoid Colon to Cutaneous, Open Approach (ICD-10-PCS; principal; 2016-11-01 13:15)
PROC: 0WCG0ZZ Extirpation of Matter from Peritoneal Cavity, Open Approach (ICD-10-PCS; principal; 2016-11-01 13:15)
DX: A41.59 Other Gram-negative sepsis (principal); A41.01 Sepsis due to Methicillin susceptible Staphylococcus aureus; S36.533A Laceration of sigmoid colon, initial encounter; K65.0 Generalized (acute) peritonitis; X78.8XXA Intentional self-harm by other sharp object, initial encounter; Y92.143 Cell of prison as the place of occurrence of the external cause; Y99.8 Other external cause status; F31.9 Bipolar disorder, unspecified; F25.9 Schizoaffective disorder, unspecified
CPT/HCPCS: 82947-QW; 96365; 97116-GP; 97161-GP; G0472; J0330; J1100; J1170; J1335; J1650; J1885; J2250; J2370; J2405; J2704; J3010; J3370; P9041; Q9967

== ENCOUNTER 2017-06-25 06:26 | Inpatient (IN) | payer MEDICAID, OTHER ==
--- NOTE | 2017-06-25 07:23 | EDPHY ---
HPI/HX/ROS/PE/MDM Narrative: CHIEF COMPLAINT: Left thumb laceration HPI: The patient is a 36 y/o male complaining of a painful and swollen left thumb secondary to a thumb laceration. States he had an I&D preformed at [facility]. Denies fever, red streaking from the thumb, numbness, paresthesias or other pertinent symptoms. REVIEW OF SYSTEMS: Aside from elements discussed in the HPI, a comprehensive 10-point review of systems was reviewed and is negative. PMH: Admitted in November 2016 for a piece of tile in his rectum which required a colostomy, depression, schizoaffective disorder SOCIAL HISTORY: Lives in [place], [facility] PHYSICAL EXAM: General: Patient is very dirty, alert, in no acute distress. ENT:Eyes are normal to inspection. ENT inspection normal. Neck: Normal inspection. Full range of motion. Respiratory: No respiratory distress. Breath sounds normal bilaterally. Cardiovascular: Regular rate and rhythm. Strong peripheral pulses. Normal cap refill. Abdomen: The abdomen is nontender to palpation. Colostomy noted. Back: Normal to inspection. No tenderness to palpation. Skin: Normal color. No rash. Warm and dry. Extremities: Left thumb 0.5cm laceration distal to IP joint with active pus, diffuse swelling of distal thumb with inability to bend at IP joint, very dirty. Otherwise normal appearance. Full range of motion. Neuro: Oriented x3. Normal motor function. Normal sensory function. Portions of this note were transcribed by an ED scribe. I personally performed the history, physical exam, and medical decision making; and confirm the accuracy of the information in the transcribed note. ED Course: 0740: 1gm IV Ancef administered. Left thumb x-ray ordered. 0743: Spoke with Dr. Tyson, radiologist, the left thumb x-ray reveals cellulitis with soft tissue gas. 0815: Patient has a WBC of 13.94. Hand surgeon will be consulted. 0852: Consulted with Dr. Amaya, hand surgeon, regarding the patient's symptoms. He recommends this patient be admitted. 0925: Consulted with hospitalist, Dr. Brown accepts admission of this patient. MDM: This patient presents with impressively swollen thumb with inability to flex IP joint and pus basically pouring out just distal to joint. I am concerned for joint and/or tendon involvement and consulted hand after administering IV antibiotics. I am concerned that the patient likely needs exploration and/or I/ d beyond my ability here in the ED. I have consulted Dr. Amaya who requests admission and he will provide definitive management later today. - Data Points Imaging Results: Imaging Impressions Finger X-Ray 06/25/17 06:46 Impression: Cellulitis with soft tissue gas. Results discussed with Dr. Banuelos in at 7:43 AM. Imaging: Discussed imaging studies w/ call center nurse Radiologist, I viewed and interpreted images myself Laboratory Results: Laboratory Results 06/25/17 07:30 06/25/17 07:30 06/25/17 06/25/17 07:30 07:30 WBC 13.94 10^3/uL H 10^3/uL (3.80-9.50) RBC 4.27 10^6/uL L 10^6/uL (4.40-6.38) Hgb 13.4 g/dL L g/dL (13.7-17.5) Hct 38.3 % L % (40.0-51.0) MCV 89.7 fL fL (81.5-99.8) MCH 31.4 pg pg (27.9-34.1) MCHC 35.0 g/dL g/dL (32.4-36.7) RDW 12.6 % % (11.5-15.2) Plt Count 306 10^3/uL 10^3/uL (150-400) MPV 8.8 fL fL (8.7-11.7) Neut % (Auto) 70.8 % % (39.3-74.2) Lymph % (Auto) 20.5 % % (15.0-45.0) [place] % (Auto) 6.0 % % (4.5-13.0) Eos % (Auto) 1.1 % % (0.6-7.6) Baso % (Auto) 0.5 % % (0.3-1.7) Nucleat RBC Rel Count 0.0 % % (0.0-0.2) Absolute Neuts (auto) 9.85 10^3/uL H 10^3/uL (1.70-6.50) Absolute Lymphs (auto) 2.86 10^3/uL 10^3/uL (1.00-3.00) Absolute Monos (auto) 0.84 10^3/uL H 10^3/uL (0.30-0.80) Absolute Eos (auto) 0.16 10^3/uL 10^3/uL (0.03-0.40) Absolute Basos (auto) 0.07 10^3/uL 10^3/uL (0.02-0.10) Absolute Nucleated RBC 0.00 10^3/uL 10^3/uL (0-0.01) Immature Gran % 1.1 % % (0.0-1.1) Immature Gran # 0.16 10^3/uL H 10^3/uL (0.00-0.10) Sodium 143 mEq/L mEq/L (134-144) Potassium 4.2 mEq/L mEq/L (3.5-5.2) Chloride 110 mEq/L mEq/L (97-110) Carbon Dioxide 23 mEq/l mEq/l (22-31) Anion Gap 10 mEq/L mEq/L (8-16) BUN 14 mg/dL mg/dL (7-23) Creatinine 0.7 mg/dL mg/dL (0.7-1.3) Estimated GFR > 60 Glucose 107 mg/dL H mg/dL (70-100) Calcium 8.8 mg/dL mg/dL (8.5-10.4) Medications Given: Discontinued Medications Cefazolin Sodium/Dextrose (Ancef 1 Gm (Premix)) 50 mls @ 200 mls/hr IV EDNOW ONE PRN Reason: Protocol Stop: 06/25/17 07:40 Last Admin: 06/25/17 07:38 Dose: 50 mls General Initial Vital Signs: Initial Vital Signs Temperature (C) 36.9 C 06/25/17 06:29 Heart Rate 76 06/25/17 06:29 Respiratory Rate 95 H 06/25/17 06:29 Blood Pressure 137/82 H 06/25/17 06:29 O2 Delivery Mode Room Air Allergies/Adverse Reactions: No Known Allergies Allergy (Verified 06/25/17 06:34) Home Medications: Medication Instructions Recorded NK [No Known Home Meds] 06/25/17 Departure - Departure Disposition: [facility] Clinical Impression: Infection of thumb Condition: Fair Report Scribed for: Bruce Banuelos Report Scribed by: Ruby Stevens Date of Report: 06/25/17 Time of Report: 07:23
[2017-06-25 07:41] LABS: % IMMATURE GRANULYOCYTES 1.1 % (0.0-1.1); ABSOLUTE IMMATURE GRANULOCYTES 0.16 10^3/uL (0.00-0.10); ADD DIFF? NO; ADD MORPH? NO; ADD SCAN? NO; ATYPICAL LYMPHOCYTE FLAG 40 (0-99); FRAGMENT RBC FLAG 0 (0-99); HEMATOCRIT 38.3 % (40.0-51.0); HEMOGLOBIN 13.4 g/dL (13.7-17.5); LEFT SHIFT FLG 10 (0-99); LIPEMIA HEMOLYSIS FLAG 90 (0-99); MEAN CELL HEMOGLOBIN 31.4 pg (27.9-34.1); MEAN CELL VOLUME 89.7 fL (81.5-99.8); MEAN PLATELET VOLUME 8.8 fL (8.7-11.7); PLATELET CLUMPS FLAG 0 (0-99); PLATELET COUNT 306 10^3/uL (150-400); RED BLOOD CELL COUNT 4.27 10^6/uL (4.40-6.38); RED CELL DISTRIBUTION WIDTH 12.6 % (11.5-15.2)
[2017-06-25 07:58] LABS: ANION GAP 10 mEq/L (8-16); CALCIUM 8.8 mg/dL (8.5-10.4); CARBON DIOXIDE 23 mEq/l (22-31); CHLORIDE 110 mEq/L (97-110); CREATININE 0.7 mg/dL (0.7-1.3); GLOMERULAR FILTRATION RATE > 60; GLUCOSE 107 mg/dL (70-100); POTASSIUM 4.2 mEq/L (3.5-5.2); SODIUM 143 mEq/L (134-144)
[2017-06-25] MEDS ORDERED: HYDROmorphONE/DILAUDID 1 MG/ML INJ IVP PRN (10:47)
[2017-06-25] MEDS ORDERED: ONDANSETRON DISINTEGRATING 4 MG TAB PO PRN (10:47)
[2017-06-25] MEDS ORDERED: PROMETHAZINE HCL 25 MG/ML INJ IVP PRN (10:47)
[2017-06-25] MEDS ORDERED: ONDANSETRON 4 MG/2 ML VIAL IVP PRN (10:47)
[2017-06-25] MEDS ORDERED: HYDROmorphone HCL/NS/PF 0.4 MG/2 ML SYR IVP PRN (10:52)
[2017-06-25] MEDS ORDERED: NS 1,000 ML IV SCH (11:00)
[2017-06-25] MEDS: oxyCODONE IR 5 MG TAB PO PRN ×2 (12:54→23:46)
--- NOTE | 2017-06-25 13:41 | PDGENHP ---
History and Physical - Chief Complaint finger pain - History of Present Illness 36 yo M with PMH that includes psychiatric issues including depression as well as perforated sigmoid colon related to sigmoid foreign body presenting with pain and swelling of his left thumb. Patient is currently homeless and notes that he banged his thumb against a ladder, his hands are generally quite dirty due to his homelessness. Over the next day the thumb became increasingly red, swollen and painful. In the ER he was noted to have early streaking redness. He underwent bedside incision and drainage of the wound prior to my evaluation of him. He denies fever or chills, he denies other skin issues, he has had some feelings of indigestion but no vomiting, no changes in his ostomy output. History Information - Allergies/Home Medication List Allergies/Adverse Reactions: No Known Allergies Allergy (Verified 06/25/17 06:34) Home Medications: NK [No Known Home Meds] 06/25/17 [Last Taken Unknown] I have personally reviewed and updated: family history, medical history, social history, surgical history - Past Medical History psychiatric history - Surgical History Additional surgical history: sigmoid colon resection and colostomy 2/2 foreign body. toe amputation - Family History Positive for: non-pertinent - Social History Smoking Status: Current every day smoker Alcohol Use: Occasionally Drug Use: None Additional social history: homeless Review of Systems Review of Systems: ROS: 10pt was reviewed & negative except for what was stated in HPI & below Physical Exam Physical Exam: Temp Pulse Resp BP Pulse Ox 37.1 C 71 12 140/88 H 95 06/25/17 10:43 06/25/17 10:43 06/25/17 10:43 06/25/17 10:43 06/25/17 10:43 Constitutional: no apparent distress, unkempt Eyes: PERRL Ears, Nose, Mouth, Throat: moist mucous membranes Cardiovascular: regular rate and rhythym, no murmur, rub, or gallop, No edema Respiratory: no respiratory distress, no rales or rhonchi, clear to auscultation Gastrointestinal: normoactive bowel sounds, soft, non-tender abdomen Skin: warm, erythema (left thumb) Musculoskeletal: full muscle strength Neurologic: AAOx3 Psychiatric: interacting appropriately, not anxious, not encephalopathic Lab Data & Imaging Review 06/25/17 07:30 06/25/17 07:30 WBC 13.94 10^3/uL (3.80-9.50) H 06/25/17 07:30 RBC 4.27 10^6/uL (4.40-6.38) L 06/25/17 07:30 Hgb 13.4 g/dL (13.7-17.5) L 06/25/17 07:30 Hct 38.3 % (40.0-51.0) L 06/25/17 07:30 MCV 89.7 fL (81.5-99.8) 06/25/17 07:30 MCH 31.4 pg (27.9-34.1) 06/25/17 07:30 MCHC 35.0 g/dL (32.4-36.7) 06/25/17 07:30 RDW 12.6 % (11.5-15.2) 06/25/17 07:30 Plt Count 306 10^3/uL (150-400) 06/25/17 07:30 MPV 8.8 fL (8.7-11.7) 06/25/17 07:30 Neut % (Auto) 70.8 % (39.3-74.2) 06/25/17 07:30 Lymph % (Auto) 20.5 % (15.0-45.0) 06/25/17 07:30 [place] % (Auto) 6.0 % (4.5-13.0) 06/25/17 07:30 Eos % (Auto) 1.1 % (0.6-7.6) 06/25/17 07:30 Baso % (Auto) 0.5 % (0.3-1.7) 06/25/17 07:30 Nucleat RBC Rel Count 0.0 % (0.0-0.2) 06/25/17 07:30 Absolute Neuts (auto) 9.85 10^3/uL (1.70-6.50) H 06/25/17 07:30 Absolute Lymphs (auto) 2.86 10^3/uL (1.00-3.00) 06/25/17 07:30 Absolute Monos (auto) 0.84 10^3/uL (0.30-0.80) H 06/25/17 07:30 Absolute Eos (auto) 0.16 10^3/uL (0.03-0.40) 06/25/17 07:30 Absolute Basos (auto) 0.07 10^3/uL (0.02-0.10) 06/25/17 07:30 Absolute Nucleated RBC 0.00 10^3/uL (0-0.01) 06/25/17 07:30 Immature Gran % 1.1 % (0.0-1.1) 06/25/17 07:30 Immature Gran # 0.16 10^3/uL (0.00-0.10) H 06/25/17 07:30 Sodium 143 mEq/L (134-144) 06/25/17 07:30 Potassium 4.2 mEq/L (3.5-5.2) 06/25/17 07:30 Chloride 110 mEq/L (97-110) 06/25/17 07:30 Carbon Dioxide 23 mEq/l (22-31) 06/25/17 07:30 Anion Gap 10 mEq/L (8-16) 06/25/17 07:30 BUN 14 mg/dL (7-23) 06/25/17 07:30 Creatinine 0.7 mg/dL (0.7-1.3) 06/25/17 07:30 Estimated GFR > 60 06/25/17 07:30 Glucose 107 mg/dL (70-100) H 06/25/17 07:30 Calcium 8.8 mg/dL (8.5-10.4) 06/25/17 07:30 Visualized and Interpreted imaging results: Yes Interpretation: thumb xray: cellulitis and soft tissue gas Assessment & Plan Assessment: Infection of thumb (Acute) 36 yo M with hx of psychiatric issues and homelessness admitted with left thumb cellulitis # left thumb cellulitis: with e/o lymphangitis and soft tissue gas noted on xray. Ortho consulted and recently performed bedside I&D. Started on ancef empirically and will continue for now pending culture data. No e/o sepsis at this time. Will ask ID to consult for help with discharge abx. # leukocytosis: in setting of above and likely related to same, no other e/o sepsis at this point, abx/cultures as above # psychiatric issues: with hx of self harm by inserting foreign body into his rectum--he does not currently carry a specific psychiatric diagnosis, is on no psych meds and appears appropriate and euthymic--will monitor. # hx of colostomy: will continue routine ostomy care # observation status, suspect he will be ready for dc on 06/26/17 pending ID consult and abx recommendations Patient new to my care. Old records reviewed and summarized as above. Care plan reviewed with ER doctor including plans for ortho consultation.
--- NOTE | 2017-06-25 18:51 | GCON ---
[f rep st] CONSULTATION ORTHOPEDICS CONSULTATION DATE OF CONSULTATION: 06/25/2017 PRIMARY CARE: None listed. CHIEF COMPLAINT: Left hand thumb infection. HISTORY OF PRESENT ILLNESS: Js Robertson is a 36-year-old right-hand dominant gentleman with multipl e psychiatric issues who presented to the emergency department today with a 4-day history of increasi ng redness, swelling, and purulent drainage from his thumb. He states he struck his thumb and sustai kimberlee a laceration over the dorsum. He initially underwent an irrigation and debridement 2 days after that in an outside clinic, continued to have increasing swelling, redness, and purulence and presente d for further evaluation. He denied any shortness of breath, chest pain, other focal complaints. PAST MEDICAL HISTORY: Perforated sigmoid colon and colostomy placement. PAST SURGICAL HISTORY: A toe amputation. ALLERGIES: No known drug allergies. MEDICATIONS: No known. Past medical history is consistent with a psychiatric history of bipolar and depression. OBJECTIVE: GENERAL: This is a disheveled gentleman who is pleasant and cooperative with examination . EXTREMITIES: Examination of his left upper extremity reveals a transverse laceration at the base of his nail. There is gross purulence expressed from this area. There is purulence underneath his n ail. He has no lymphangitic streaking. No tenderness over the flexor or extensor tendon surface to his thumb and intact active digital flexion through his IP joint without increased pain. Sensation i s grossly intact to light touch. IMAGING: Radiographs demonstrate a degenerative change across the distal interphalangeal joint which appears chronic. There is no lucency or lesion consistent with osteomyelitis, and there is no acute fracture noted. IMPRESSION: Left thumb abscess. TREATMENT PLAN: After a digital block placed by myself with 2% lidocaine plain, the margins of the n ail were then elevated, and gross purulence was present underneath the nail bed and extending to the eponychial fold. The nail was completely removed. The eponychial fold explored. This did extend do wn to the dorsal surface of the distal phalanx but not into an intra-articular position. This was ir rigated and sterilely dressed. He will begin twice daily dressings with 10-minute half- strength per oxide soaks, and we will follow him expectantly. Infectious Disease has been consulted by the [facility] service for additional evaluation. /[id number]/[facility]
[2017-06-25] MEDS: ACETAMINOPHEN 325 MG TAB PO PRN (23:19)
[2017-06-26] MEDS: ACETAMINOPHEN 325 MG TAB PO PRN ×3 (05:12→16:27)
[2017-06-26 05:22] LABS: % IMMATURE GRANULYOCYTES 1.4 % (0.0-1.1); ABSOLUTE IMMATURE GRANULOCYTES 0.16 10^3/uL (0.00-0.10); ADD DIFF? NO; ADD MORPH? NO; ADD SCAN? NO; ATYPICAL LYMPHOCYTE FLAG 60 (0-99); FRAGMENT RBC FLAG 0 (0-99); HEMATOCRIT 38.4 % (40.0-51.0); HEMOGLOBIN 13.4 g/dL (13.7-17.5); LEFT SHIFT FLG 10 (0-99); LIPEMIA HEMOLYSIS FLAG 90 (0-99); MEAN CELL HEMOGLOBIN 31.7 pg (27.9-34.1); MEAN CELL HEMOGLOBIN CONCENTR. 34.9 g/dL (32.4-36.7); MEAN CELL VOLUME 90.8 fL (81.5-99.8); MEAN PLATELET VOLUME 8.9 fL (8.7-11.7); PLATELET CLUMPS FLAG 0 (0-99); PLATELET COUNT 310 10^3/uL (150-400); RED BLOOD CELL COUNT 4.23 10^6/uL (4.40-6.38); RED CELL DISTRIBUTION WIDTH 12.8 % (11.5-15.2)
[2017-06-26 05:36] LABS: ANION GAP 11 mEq/L (8-16); CALCIUM 8.7 mg/dL (8.5-10.4); CARBON DIOXIDE 24 mEq/l (22-31); CHLORIDE 108 mEq/L (97-110); CREATININE 0.7 mg/dL (0.7-1.3); GLOMERULAR FILTRATION RATE > 60; GLUCOSE 100 mg/dL (70-100); POTASSIUM 4.2 mEq/L (3.5-5.2); SODIUM 143 mEq/L (134-144)
--- NOTE | 2017-06-26 09:04 | HOSPPROG ---
Hospitalist Progress Note Assessment/Plan: 36 yo M with hx of psychiatric issues and homelessness admitted with left thumb cellulitis # left thumb cellulitis, abscess -s/p I & D and drainage -ID to see # leukocytosis: in setting of above -will follow # psychiatric issues: with hx of self harm by inserting foreign body into his rectum -he does not currently carry a specific psychiatric diagnosis # hx of colostomy: will continue routine ostomy care -had a perforated sigmoid colon from foreign body -to have this reversed # plan: will need another day of iv abx. Is at high risk for worsening the infection due to being homeless. He will need another midnight stay which will make him IP. If he decides to leave, recommendation is for oral Augmentin. Subjective: Js is not c/o pain. Was swearing and saying I should know about all of his health issues. Objective: Vital Signs Temp Pulse Resp BP Pulse Ox 37.1 C 70 12 132/77 H 94 06/26/17 08:00 06/26/17 08:00 06/26/17 08:00 06/26/17 08:00 06/26/17 08:00 Laboratory Results 06/26/17 05:03 06/26/17 05:03 06/25/17 06/26/17 06/27/17 05:59 05:59 05:59 Intake Total 1500 Output Total 1490 Balance 10 - Physical Exam Constitutional: not in pain, unkempt Eyes: PERRL Ears, Nose, Mouth, Throat: hearing normal Cardiovascular: regular rate and rhythym Respiratory: no respiratory distress Gastrointestinal: normoactive bowel sounds Skin: other (no lymphangitis noted/ left thumb in dressing) Musculoskeletal: full muscle strength Psychiatric: agitated ICD10 Worksheet Patient Problems: Problems Problem Status Onset Infection of thumb Acute Abdominal pain Acute Intestinal perforation Acute Rectal foreign body Acute
--- NOTE | 2017-06-26 09:06 | HOSPPROG ---
Hospitalist Progress Note Assessment/Plan: 36 yo M with hx of psychiatric issues and homelessness admitted with left thumb cellulitis. Today is my first encounter w the patient, chart reviewed *Left thumb cellulitis with lyphangitis -seen and treated by Dr Amaya -ID to see -Ancef *Leukocytosis *Psychiatric issues *Hx of colostomy # Objective: Vital Signs Temp Pulse Resp BP Pulse Ox 37.1 C 70 12 132/77 H 94 06/26/17 08:00 06/26/17 08:00 06/26/17 08:00 06/26/17 08:00 06/26/17 08:00 Laboratory Results 06/26/17 05:03 06/26/17 05:03 06/25/17 06/26/17 06/27/17 05:59 05:59 05:59 Intake Total 1500 Output Total 1490 Balance 10 ICD10 Worksheet Patient Problems: Problems Problem Status Onset Infection of thumb Acute Abdominal pain Acute Intestinal perforation Acute Rectal foreign body Acute
--- NOTE | 2017-06-26 09:16 | WOCRNPDOC ---
WOCRN Advanced Assessment Note - Skin Integrity Problem, Advanced Assess Right First Finger Scab Dressing Type: Open to Air Site Measurement - Head-to-Toe Length X Width X Depth (cm): 0.6x0.6xscab Skin Integrity Problem Comment: Wound older and scabbed. Hand dry and dirty. Clean and apply skin repair cream BID. Cover scab with wound gel and bandaid. Right Lateral Hand Scab Dressing Type: Open to Air Site Measurement - Head-to-Toe Length X Width X Depth (cm): 0.8x0.8xscab Skin Integrity Problem Comment: Hand dry and dirty. Please clean and apply skin repair cream. Apply wound gel and bandaid. Wound care will sign off. No sign of infection. Area not painful.
--- NOTE | 2017-06-26 11:19 | ASMTCMCOM ---
CM Note CM Note Notes: Patient admitted with left thumb cellulitis/abscess. Bedside I&D performed in ED. He's being treated with Ancef; ID to see patient today. Patient also has a colostomy that is pending take-down - surgery will also be consulted. I tried to speak with patient about discharge planning and how he's been managing since his last admission this spring. Per patient, he was in long-term from November (time of last [facility] d/c) until February and has had no follow up care or medication since February. He had unsavory things to say about the [facility], saying they would not fill his prescriptions without a doctor's appointment. He didn't want to talk about resources or what he might need after this hospitalization. He said he's leaving [place] and going to [place] with his parents. He became more irritated the longer we spoke. Case Management will follow. Current CM discharge plan: TBD Date Signed: 06/26/2017 11:18 AM Electronically Signed By:Joy Heredia RN
[2017-06-26] MEDS: oxyCODONE IR 5 MG TAB PO PRN ×2 (12:02→16:27)
--- NOTE | 2017-06-26 15:47 | PDMN ---
Medical Necessity Medical necessity: change to IP; los>2mn for L thumb cellulitis & abscess s/p I& D, w/leukocytosis; requires ID consult, IV abx; comorbid psych issues, hx colostomy, homelessness; per order and progress note 06/26/17
--- NOTE | 2017-06-26 18:25 | PCMIDPN ---
Assessment/Plan: Assessment/Plan: * Left thumb infection/abscess status post debridement with removal of nail after recent laceration: Clinically improved post removal of nail and debridement. No culture data available from time of drainage. Typical skin david such as Staphylococcus aureus or beta-hemolytic streptococci most likely although given mechanism of injury with laceration more mixed david also of consideration. Will transition cefazolin to Unasyn for activity against gram- negative nato/anaerobes as well as MSSA and streptococci. Patient with prior colonization with MSSA at time of hospitalization in October. Do not anticipate prolonged duration of IV antibiotic therapy and likely can transition to Augmentin tomorrow to complete 7 days of antibiotics post drainage. Time spent, 35 min, of which greater than half was spent in education/counseling /coordination of care related to left thumb infection/abscess and ongoing plan of care. 06/26/17 18:21 Subjective: Patient known to Infectious Disease service from care earlier this year related to polymicrobial peritonitis which included MSSA after self-induced sigmoid perforation with tile. Now admitted with left thumb infection after sustaining accidental laceration to the left thumb on a ladder. This was followed by development of pain, swelling and drainage. He underwent incision and drainage of a left thumb abscess yesterday with findings of gross purulence underneath the nail bed extending to the eponychial fold without noted penetration into joint. He has not experienced fever, chills, pain/erythema in the forearm or upper arm. Does not note any lymphangitis streaking. Remains frustrated with his colostomy not being taken down after prior perforation. Infectious Disease is now asked to assist in his ongoing management related to left thumb infection. Past medical history: Bipolar disorder, depression, anxiety Past surgical history: Perforated sigmoid colon with colostomy Medications have been reviewed including use of cefazolin Allergies: No known drug allergies Social: Smokes daily without significant alcohol or drug use. Currently is homeless with plans to move to [place]. Objective: Vital Signs Temp Pulse Resp BP Pulse Ox 36.8 C 66 12 145/86 H 95 06/26/17 15:31 06/26/17 15:31 06/26/17 15:31 06/26/17 15:31 06/26/17 15:31 06/25/17 06/26/17 06/27/17 05:59 05:59 05:59 Output Total 500 Balance -500 Cefazolin # 1 No culture data available for review on this admission Plain film shows small gas bubbles at tip of thumb - Physical Exam General Appearance: alert, no apparent distress, non-toxic, other (Disheveled) EENT: poor dentition (Right posterior molar with significant caries), No scleral icterus, No thrush Respiratory: lungs clear, No respiratory distress Cardiac/Chest: regular rate, rhythm, No systolic murmur Extremities: inflammation (Left thumb with nail post removal; mild swelling with no jonny purulence or cellulitis present; cannot flex tip of thumb which he states is present for prolonged period) Abdomen: non-tender, No distended ICD10 Worksheet Patient Problems: Problems Problem Status Onset Infection of thumb Acute Abdominal pain Acute Intestinal perforation Acute Rectal foreign body Acute
[2017-06-26] MEDS: AMPICILLIN/SULBACTAM 3 GM in NS 100 ML IV SCH (21:19)
[2017-06-27] MEDS: oxyCODONE IR 5 MG TAB PO PRN ×3 (02:23→14:29)
[2017-06-27] MEDS: AMPICILLIN/SULBACTAM 3 GM in NS 100 ML IV SCH ×3 (05:57→20:14)
[2017-06-27] MEDS: ACETAMINOPHEN 325 MG TAB PO PRN ×2 (07:40→14:29)
--- NOTE | 2017-06-27 14:15 | HOSPPROG ---
Hospitalist Progress Note Assessment/Plan: 36 yo M with hx of psychiatric issues and homelessness admitted with left thumb cellulitis # left thumb cellulitis, abscess -s/p I & D and drainage -on Unasyn/ will change to Augmentin on dc # leukocytosis: in setting of above -will follow # psychiatric issues: with hx of self harm by inserting foreign body into his rectum -he does not currently carry a specific psychiatric diagnosis # hx of colostomy: will continue routine ostomy care -had a perforated sigmoid colon from foreign body -to have this reversed on this stay with Dr Schneider -appreciate him seeing Js/ it is unlikely that Js will get f/u care once he is discharged # plan:colostomy takedown tomorrow, cont abx Subjective: Js is very relieved to have colostomy take down tomorrow, c/o some tooth pain. Objective: Vital Signs Temp Pulse Resp BP Pulse Ox 36.8 C 66 18 144/91 H 95 06/27/17 07:18 06/27/17 07:18 06/27/17 07:18 06/27/17 07:18 06/27/17 07:18 06/26/17 06/27/17 06/28/17 05:59 05:59 05:59 Intake Total 100 700 Output Total 500 Balance -400 700 - Physical Exam Constitutional: chronically ill appearing, unkempt Eyes: PERRL Ears, Nose, Mouth, Throat: hearing normal Respiratory: no respiratory distress Skin: warm Musculoskeletal: full muscle strength Neurologic: AAOx3 Psychiatric: interacting appropriately ICD10 Worksheet Patient Problems: Problems Problem Status Onset Infection of thumb Acute Abdominal pain Acute Intestinal perforation Acute Rectal foreign body Acute
--- NOTE | 2017-06-27 14:45 | GCON ---
[f rep st] CONSULTATION DATE OF CONSULTATION: 06/27/2017 CHIEF COMPLAINT: Colostomy in place, wanting take down. HISTORY OF PRESENT ILLNESS: This is a 36-year-old male, well-known to me from a previous hospitaliza tion in October of this year, where he had a rectal perforation from a piece of andriy tile. At any rate, the patient was subsequently taken to the operating room, where he had a sigmoid colon resectio n, Nikolas's pouch and end colostomy. He had an extended hospital stay because he had a pelvic absc ess which required extended antibiotic therapy. At any rate, he was subsequently discharged back to [facility] and subsequently released from [facility]. I saw him a couple of times in clinic, and the last time I saw him, he was scheduled to have a CT scan of his abdomen and pelvis, to verify whether or not he w as ready for takedown. At any rate, he was lost to followup and actually followed up with [facility] in the interim. At any rate, he presented to the emergency department yesterday com plaining of some pain and drainage, and was subsequently admitted to the medical service with an absc ess in his thumb. At any rate, he continues to convalesce from that, he remains on IV antibiotics. I was asked to see him as to whether or not he may be a candidate for colostomy takedown, as it appea rs he currently remains homeless and is having a lot of issues maintaining appliance coverage of this , and it may be appropriate to take that down at this point, as he really has no resources available to take care of this. On my consultation, he is really unclear why he did not follow up. He denies having abdominal pain. Does endorse having many issues having and getting appliance coverage over his stoma. He states dominic t he does occasionally have bowel movements from his rectal stump, but otherwise feels well. PAST MEDICAL HISTORY: Depression, bipolar. PAST SURGICAL HISTORY: Toe removal, exploratory laparotomy with end colostomy and Nikolas's pouch. SOCIAL HISTORY: Homeless. Was previously incarcerated at his previous surgery. REVIEW OF SYSTEMS: Full 10-point review was performed. PHYSICAL EXAM: VITAL SIGNS: Temperature 36.8, blood pressure 144/91, heart rate 66 and he is 95% on room air. CONSTITUTIONAL: He is alert, oriented, in no distress. He appears comfortable. HEENT: Eyes: His pupils are equal, round, and reactive to light and accommodation. His extraocular moveme nts are intact. Ears, nose, mouth and throat: He has poor dentition. He has moist mucous membranes . His hearing is normal. CARDIOVASCULAR: He has a regular rate and rhythm. RESPIRATORY: No respi ratory distress. No rales or rhonchi. GI: His abdomen is soft. He has normoactive bowel sounds. His left lower quadrant ostomy is beefy red and functioning appropriately. The skin around it is makenzie ewhat excoriated, consistent with his history of not having any appliances to appropriately address t he stoma. SKIN: Warm, normal color, no rashes other than those associated with this stoma. MUSCULO SKELETAL: Full strength, no tenderness. Normal joint range of motion. NEUROLOGIC: Alert and orien marcus. Cranial nerves 2-12 intact. No weakness, no numbness. PSYCH: He is interacting appropriately . Does not appear anxious. LYMPH/HEME/IMMUNOLOGIC: He does not have any cervical or groin lymphade nopathy appreciated. EXTREMITIES: His left thumb is wrapped, currently draining what appears to be serous fluid. Tender to palpation. LABORATORY: Leukocytosis to 11,000. H and H stable at 13 and 38. Chemistry is unremarkable. ASSESSMENT/PLAN: A 36-year-old male with colostomy, status post foreign body perforation of the sigm oid colon. The patient was seen in the clinic. We were supposedly going to take him down, wanted to get some imaging prior to doing this, but he never followed up or obtained the imaging. He is curre ntly admitted, it sounds like he continues to have issues with poorly fitting stoma appliances and re ally lack of resources. I think that this is a good time to attempt takedown, if his CT scan shows t hat he has no pelvic abscess and his rectal stump appears healthy. I have subsequently ordered a CT scan of his abdomen and pelvis with intravenous contrast as well as rectal contrast, to evaluate this . If things look good, we will plan to take him to the operating room within the next day. I discus sed this with the hospitalist team caring for the patient. /[id number]/MODL
--- NOTE | 2017-06-27 14:58 | PCMIDPN ---
Assessment/Plan: Assessment: Left thumb infection status post debridement. Clinically looks improved. Plan to continue covering with IV Unasyn due to mechanism of injury. Patient is very interested in getting his ostomy reversed. Will contact General surgery group for this concern. Plan: 1. Continue IV Unasyn. 2. Follow appearance of left thumb. 3. General surgery consultation for possible ostomy reversal. 06/27/17 14:56 06/27/17 14:56 Subjective: Patient is sitting in his hospital bed with his thumb soaking. No fevers or chills. States that the appearance of his thumb disturbs him but otherwise the thumb is doing better. Objective: Unasyn # 1 Vital Signs Temp Pulse Resp BP Pulse Ox 36.6 C 66 18 145/87 H 96 06/27/17 14:31 06/27/17 14:31 06/27/17 07:18 06/27/17 14:31 06/27/17 14:31 06/26/17 06/27/17 06/28/17 05:59 05:59 05:59 Intake Total 100 700 Output Total 500 Balance -400 700 - Physical Exam General Appearance: WD/WN, alert, no apparent distress, non-toxic Respiratory: lungs clear, normal breath sounds, No respiratory distress Cardiac/Chest: regular rate, rhythm, No tachycardia Extremities: non-tender, No normal inspection Skin: normal color, warm/dry, No rash Neuro/Psych: alert, oriented x 3, other (Mildly pressured speech.) ICD10 Worksheet Patient Problems: Problems Problem Status Onset Infection of thumb Acute Abdominal pain Acute Intestinal perforation Acute Rectal foreign body Acute
[2017-06-27] MEDS ORDERED: IOPAMIDOL (ISOVUE-300) 100 ML BTL ONE (15:06)
--- NOTE | 2017-06-27 17:21 | ASMTCMCOM ---
CM Note CM Note Notes: Pt will be taken to surgery tomorrow for a takedown of his colostomy, CM will follow post op. Date Signed: 06/27/2017 05:21 PM Electronically Signed By:Marylou Mobley RN
[2017-06-27] MEDS ORDERED: AMPICILLIN/SULBACTAM 3 GM in NS 100 ML IV SCH (21:00)
[2017-06-28] MEDS: AMPICILLIN/SULBACTAM 3 GM in NS 100 ML IV SCH ×4 (00:08→18:39)
--- NOTE | 2017-06-28 09:09 | PCMIDPN ---
Assessment/Plan: # L thumb abscess/cellulitis. no residual signs of cellulitis, just macerated. AF throughout hospitalization. Abx thru 07/03, can transition to PO Augmentin at any point. --call for additional questions # H/o Rectal perf from tile requiring urgent Bishop pouch and ostomy: takedown ostomy today --unasyn should be adequate sandra-op antibiotics Unasyn 3gm IV q6h#2 06/28/17 09:13 Subjective: patient is agitated because NPO since 9am last night and is hungry wants L thumb wrapped up Objective: Vital Signs Temp Pulse Resp BP Pulse Ox 37.1 C 54 L 18 139/84 H 95 06/28/17 07:46 06/28/17 07:46 06/28/17 07:46 06/28/17 07:46 06/28/17 07:46 06/27/17 06/28/17 06/29/17 05:59 05:59 05:59 Intake Total 100 1800 Output Total 500 Balance -400 1800 - Physical Exam General Appearance: alert, no apparent distress, thin EENT: No scleral icterus Respiratory: No accessory muscle use Neck: supple Cardiac/Chest: regular rate, rhythm Extremities: other (L thumb with obvious absence of L nail, skin macerated, no purulence or erythema), No swelling (L arm or hand) Abdomen: non-tender, soft ICD10 Worksheet Patient Problems: Problems Problem Status Onset Infection of thumb Acute Abdominal pain Acute Intestinal perforation Acute Rectal foreign body Acute
[2017-06-28] MEDS ORDERED: BUPIVACAINE 0.25% 30 ML SDV ONE (10:03)
--- NOTE | 2017-06-28 11:37 | HOSPPROG ---
Hospitalist Progress Note Assessment/Plan: 36 yo M with hx of psychiatric issues and homelessness admitted with left thumb cellulitis # left thumb cellulitis, abscess -s/p I & D and drainage -on Unasyn/ will change to Augmentin on dc # leukocytosis: in setting of above -will follow # psychiatric issues: with hx of self harm by inserting foreign body into his rectum -he does not currently carry a specific psychiatric diagnosis # hx of colostomy:surgery today for takedown today # plan:IV fluids while NPO Subjective: Reji is upset that he has been NPO since last night. Objective: Vital Signs Temp Pulse Resp BP Pulse Ox 37.1 C 54 L 18 139/84 H 95 06/28/17 07:46 06/28/17 07:46 06/28/17 07:46 06/28/17 07:46 06/28/17 07:46 06/27/17 06/28/17 06/29/17 05:59 05:59 05:59 Intake Total 100 1800 Output Total 500 Balance -400 1800 - Physical Exam Constitutional: chronically ill appearing Eyes: PERRL Ears, Nose, Mouth, Throat: hearing normal Respiratory: no respiratory distress Skin: warm Musculoskeletal: full muscle strength Neurologic: AAOx3 Psychiatric: agitated ICD10 Worksheet Patient Problems: Problems Problem Status Onset Infection of thumb Acute Abdominal pain Acute Intestinal perforation Acute Rectal foreign body Acute
[2017-06-28] MEDS: ACETAMINOPHEN 325 MG TAB PO PRN (12:51)
[2017-06-28] MEDS: oxyCODONE IR 5 MG TAB PO PRN ×3 (12:52→22:38)
--- NOTE | 2017-06-28 13:22 | PDHPUP ---
History & Physical Update H&P update statement: This history and physical update is based on an assessment of the patient which was completed after admission or registration (within 24 hours), but prior to the surgery/procedure. H&P update: H&P reviewed & patient examined, no change in patient's condition since H&P completed
--- NOTE | 2017-06-28 14:00 | PDANEPAE ---
ANE History of Present Illness Colostomy takedown ANE Past Medical History - Cardiovascular History Hx Hypertension: No - Pulmonary History Hx Oxygen in Use at Home: No Hx Sleep Apnea: No Sleep Apnea Screening Result - Last Documented: Negative - Endocrine History Hx Diabetes: No ANE Review of Systems Review of Systems: - Exercise capacity METS (RN): 4 METS ANE Patient History - Allergies Allergies/Adverse Reactions: No Known Allergies Allergy (Verified 06/25/17 06:34) - Home Medications Home medications: home medication list seen and reviewed Home Medications: QUEtiapine FUMARATE [Seroquel 300mg (*)] 900 mg PO HS 06/26/17 [Last Taken Unknown] - NPO status NPO Since - Liquids (Date): 06/28/17 NPO Since - Liquids (Time): 00:00 NPO Since - Solids (Date): 06/28/17 NPO Since - Solids (Time): 00:00 - Anes Hx Anes Hx: no prior problems - Smoking Hx Smoking Status: Current every day smoker - Alcohol Use Alcohol Use: Occasionally ANE Labs/Vital Signs - Labs Result Diagrams: 06/26/17 05:03 06/26/17 05:03 - Vital Signs Blood Pressure: 139/84 Heart Rate: 54 Respiratory Rate: 18 O2 Sat (%): 95 Height: 167.64 cm Weight: 65.771 kg ANE Physical Exam - Airway Neck exam: FROM Mallampati Score: Class 2 - Pulmonary Pulmonary: no respiratory distress - Cardiovascular Cardiovascular: regular rate and rhythym - ASA Status ASA Status: II ANE Anesthesia Plan Anesthesia Plan: general endotracheal anesthesia
[2017-06-28] MEDS ORDERED: MIDAZOLAM 2 MG/2 ML VIAL IVP ONE (14:02)
[2017-06-28] MEDS ORDERED: ROCURONIUM 50 MG/5 ML VIAL ONE ×2 (14:18→15:14)
[2017-06-28] MEDS ORDERED: LIDOCAINE 2% 5 ML SDV ONE (14:19)
[2017-06-28] MEDS ORDERED: GLYCOPYRROLATE 0.2 MG/1 ML VIAL ONE (14:19)
[2017-06-28] MEDS ORDERED: fentaNYL 100 MCG/2 ML INJ ONE ×5 (14:20→18:11)
[2017-06-28] MEDS ORDERED: PROPOFOL 200 MG/20 ML VIAL ONE (14:20)
[2017-06-28] MEDS ORDERED: DEXAMETHASONE 4 MG/ML VIAL ONE (14:49)
[2017-06-28] MEDS ORDERED: ONDANSETRON 4 MG/2 ML VIAL ONE ×2 (14:50→17:36)
[2017-06-28] MEDS ORDERED: PHENYLEPHRINE HCL 100 MCG/ML SYR ONE (14:58)
[2017-06-28] MEDS ORDERED: HYDROmorphONE/DILAUDID 1 MG/ML INJ IVP PRN (15:11)
[2017-06-28] MEDS ORDERED: NALOXONE HCL 0.4 MG/ML INJ IVP PRN ×2 (15:29→17:02)
[2017-06-28] MEDS ORDERED: DEXAMETHASONE 4 MG/ML VIAL IVP PRN (15:29)
[2017-06-28] MEDS ORDERED: ONDANSETRON 4 MG/2 ML VIAL IVP PRN (15:29)
[2017-06-28] MEDS ORDERED: SUGAMMADEX SODIUM 200 MG/2 ML VIAL IVP ONE (16:58)
[2017-06-28] MEDS ORDERED: HYDROmorphONE/DILAUDID 6 MG/30 ML PCA IV PRN (17:02)
--- NOTE | 2017-06-28 17:02 | POSTOPPROG ---
Post Op Note Date of Operation: 06/28/17 Surgeon: José Schneider Dental Service Technician: joy Anesthesiologist: giacomo Anesthesia: GET(General Endotracheal) Pre-op Diagnosis: rectal perforation Post-op Diagnosis: same Indication: 36yo M with h/o rectal perf who had a colon resection and end colostomy Procedure: lap convert open colostomy takedown, lysis of adhesions Findings: mild adhesions Inf/Abcess present in the surg proc area at time of surgery?: No EBL: Minimal Drains: Roscoe Moreno Specimen(s): colostomy, anastomotic rings
--- NOTE | 2017-06-28 17:21 | POSTANESTH ---
Post Anesthetic Evaluation Cardiovascular Status: Normal, Stable Respiratory Status: Normal, Stable Level of Consciousness/Mental Status: Can Participate in Eval Pain Control: Adequate, Prn Tx Ordered Nausea/Vomiting Control: Adequate, Prn Tx Ordered Complications Possibly Related to Anesthesia: None Noted
[2017-06-28] MEDS ORDERED: HYDROmorphONE/DILAUDID 1 MG/ML INJ ONE (17:32)
[2017-06-28] MEDS: fentaNYL 100 MCG/2 ML INJ IVP PRN ×3 (17:47→18:10)
[2017-06-28] MEDS: LR 1,000 ML IV SCH ×2 (18:01→18:02)
[2017-06-28] MEDS: LORazepam 2 MG/ML INJ IVP PRN (20:42)
[2017-06-29] MEDS: AMPICILLIN/SULBACTAM 3 GM in NS 100 ML IV SCH ×4 (00:19→17:22)
[2017-06-29] MEDS: oxyCODONE IR 5 MG TAB PO PRN ×4 (01:52→15:21)
[2017-06-29] MEDS: ACETAMINOPHEN 325 MG TAB PO PRN (08:11)
[2017-06-29] MEDS: LORazepam 2 MG/ML INJ IVP PRN (08:11)
--- NOTE | 2017-06-29 09:49 | HOSPPROG ---
Hospitalist Progress Note Assessment/Plan: 36 yo M with hx of psychiatric issues and homelessness admitted with left thumb cellulitis # left thumb cellulitis, abscess -s/p I & D and drainage -on Unasyn/ will change to Augmentin on dc #. h/o rectal perforation w colon resection, colostomy -pod #1 for a colostomy takedown and lysis of adhesion # leukocytosis: in setting of above -will follow # psychiatric issues: with hx of self harm by inserting foreign body into his rectum -he does not currently carry a specific psychiatric diagnosis # plan: tolerating cl liquids Subjective: Reji has no complaints. Objective: Vital Signs Temp Pulse Resp BP Pulse Ox 37.1 C 67 16 124/74 H 95 06/29/17 07:11 06/29/17 07:11 06/29/17 07:11 06/29/17 07:11 06/29/17 07:11 06/28/17 06/29/17 06/30/17 05:59 05:59 05:59 Intake Total 1800 1000 Output Total 1365 Balance 1800 -365 - Physical Exam Constitutional: no apparent distress Eyes: PERRL Ears, Nose, Mouth, Throat: hearing normal Cardiovascular: regular rate and rhythym Respiratory: no respiratory distress Gastrointestinal: other (noé w minimal drainage), No normoactive bowel sounds ( hypoactive) Skin: warm Musculoskeletal: full muscle strength Neurologic: other (sedate, recieved ativan earlier) ICD10 Worksheet Patient Problems: Problems Problem Status Onset Infection of thumb Acute Abdominal pain Acute Intestinal perforation Acute Rectal foreign body Acute
--- NOTE | 2017-06-29 11:08 | SOAPPROG ---
SOAP Progress Note Assessment/Plan: Assessment/Plan: 36-year-old male status post colostomy takedown Vitals stable, Pain controlled Abdomen is soft PASTORA is serosanguineous Would continue clears through today, if has bowel function over the next 24 hours would advance diet tomorrow. Agree with continuing antibiotics through the . 06/29/17 11:06 06/29/17 11:07 Subjective: Upset that he is not eating regular diet Objective: Vital Signs Temp Pulse Resp BP Pulse Ox 37.1 C 67 16 124/74 H 95 06/29/17 07:11 06/29/17 07:11 06/29/17 07:11 06/29/17 07:11 06/29/17 07:11 06/28/17 06/29/17 06/30/17 05:59 05:59 05:59 Intake Total 1800 1000 Output Total 1365 Balance 1800 -365 ICD10 Worksheet Patient Problems: Problems Problem Status Onset Infection of thumb Acute Abdominal pain Acute Intestinal perforation Acute Rectal foreign body Acute
--- NOTE | 2017-06-29 11:33 | GOP ---
[f rep st] OPERATIVE REPORT DATE OF OPERATION: 06/28/2017 SURGEON: José Schneider MD CORNER BEAD OPERATOR: Roxana Cerda, GO ANESTHESIA: General endotracheal. ANESTHESIOLOGIST: Dr. Ernie Thompson MD PREOPERATIVE DIAGNOSIS: Rectal perforation status post colostomy, desiring colostomy takedown. POSTOPERATIVE DIAGNOSIS: Rectal perforation status post colostomy, desiring colostomy takedown. PROCEDURE PERFORMED: 1. Exploratory laparoscopy converted to laparotomy with successful colostomy takedown. 2. Abdominal adhesiolysis. FINDINGS: Mild adhesions from previous surgery successfully taken down laparoscopically. Successfull y mobilized colon, first anastomosis had positive leak test. Conversion to open. Completely re-did anastomosis with 29 mm EEA stapler. Negative leak test x3 for subsequent second anastomosis. SPECIMENS: Distal end colostomy and anastomotic rings. ESTIMATED BLOOD LOSS: 10 cc. DESCRIPTION OF PROCEDURE: The patient was greeted in the preoperative suite. Once again, risks, haydee efits, and alternatives were discussed. Consent was signed. He was then brought back to the operati ve suite, placed on the OR table in supine position. After all anesthesia machines, including SCDs, were on and functioning, [employer] time-out was performed. After successful inductio n of general anesthesia, the patient's abdomen was prepped and draped in typical sterile fashion afte r placing him in low lithotomy position with all pressure points appropriately padded. I entered the abdomen via a supraumbilical cutdown through which the Veress needle was passed, achieved pneumoperi toneum to 15 mmHg which was well tolerated by the patient. Through this, I placed a 12 mm Visiport. Once successfully in the abdomen, there were some adhesions in the left and right upper quadrant whic h were successfully taken down after inserting 2 additional 5 mm trocars, 1 in the right lower 1 in t he right upper quadrant, both under direct visualization. After lysing these adhesions, I successful ly moved all the small bowel out of the pelvis and identified the rectal stump via its 2 previously p laced Prolene sutures. I successfully dissected the posterior and lateral portions of the rectal sunita mp out providing adequate length for anastomosis. I cleaned some fatty tissue off the anterior edge b ut, for the most part, the rectal stump appeared clean and healthy. I then turned my attention toward taking down the patient's colon laparoscopically. I lysed the adhesions holding the colon from the a nterior abdomen. On the exterior abdomen, I made a curvilinear elliptical incision around the end col ostomy and carried this down through the fascia. I successfully took it down from the fascia and free d it from its attachments. I then eviscerated an additional portion of the colon out of the colostomy site and, using a single fire of the NIYA stapler, successfully amputated the distal colostomy end an d sent this off to pathology. Through this, I used the auto purse efren device through which a 29 mm anvil was placed. I then allowed this to fall back in laparoscopically. I reinsufflated the patie nt's abdomen and, through the rectum, serially dilated and placed the 29 mm EEA stapler. I successful ly brought the firing pin out and attached it to the anvil and was successfully fired. The stapler w as removed. The anastomotic rings were inspected and noted to be intact; however, a leak test was pos itive and laparoscopically I was able to identify a 2-3 mm site anteriorly adjacent to the anastomosi s where there was a leak. I attempted to successfully take this down laparoscopically but was unsucce ssful. I then converted to a lower midline incision through which I restapled distal to this on the r ectal stump using a single fire contour stapler, and resected that portion that had the hole in it. I then, on the distal portion of the patient's colon, re-did my pursestring this time hand-sewn using a 2-0 Prolene suture through which the anvil was placed. Again, a new stapler was brought in, 29 pin was brought through the rectal stump attached to the anvil and fired again. This appeared to be eduarda n, dry, intact and well perfused. Negative leak test was performed x3 with a significant amount of a ir distention in the colon. I then irrigated the patient's pelvis with 3 L warm normal saline. A annie in was successfully placed into the pelvis and brought out my right lower quadrant port site and alejandra ched to the skin with a nylon suture. After this was done, I inspected the remainder of the viscera which were intact. My anastomosis had no tension on it and was not twisted. I then turned my attentio n toward closing. First, I closed the colostomy site with a running #1 PDS suture, noting excellent fascial reapproximation. In the same fashion, I closed my midline incision with a running #1 PDS as well. Skin and colostomy site were closed with arie. Scott were placed within the colostomy site . Dressings and tape were placed. The patient was then extubated in the operative suite and taken to the PACU in satisfactory condition. DRAINS: 19-Iceland[place] Crow in pelvis. COUNTS: All counts were reported as correct x2. /[id number]/MODL
--- NOTE | 2017-06-29 15:18 | ASMTCMCOM ---
CM Note CM Note Notes: Spoke w/pt re; dc poc. Pt states that his father is going to pick him up tomorrow and that he will stay their at dc. CM will consult with regarding follow up mental health resources. DC Plan: Home with parents Date Signed: 06/29/2017 03:18 PM Electronically Signed By:Marylou Mobley RN
[2017-06-30] MEDS: AMPICILLIN/SULBACTAM 3 GM in NS 100 ML IV SCH ×4 (00:12→17:17)
[2017-06-30] MEDS: oxyCODONE IR 5 MG TAB PO PRN ×3 (00:19→14:32)
[2017-06-30] MEDS: ACETAMINOPHEN 325 MG TAB PO PRN (05:18)
--- NOTE | 2017-06-30 09:49 | SOAPPROG ---
SOAP Progress Note Assessment/Plan: Assessment/Plan: 36-year-old male status post colostomy takedown Vitals remained stable. Hemodynamically stable. Pain well controlled, will transition to oral narcotics. Abdomen is soft, nondistended, appropriately tender. Dressings taken down today , ostomy site jonah withdrawn fresh dressing placed. PASTORA remains serosanguineous, will plan to remove it tomorrow. 06/29/17 11:06 06/29/17 11:07 06/30/17 09:48 Subjective: Tolerating regular diet, having bowel function Objective: Vital Signs Temp Pulse Resp BP Pulse Ox 36.6 C 64 18 130/95 H 92 06/30/17 08:00 06/30/17 08:00 06/30/17 08:00 06/30/17 08:00 06/30/17 08:00 06/29/17 06/30/17 07/01/17 05:59 05:59 05:59 Intake Total 1000 220 Output Total 1367 1440 Balance -365 -1220 ICD10 Worksheet Patient Problems: Problems Problem Status Onset Infection of thumb Acute Abdominal pain Acute Intestinal perforation Acute Rectal foreign body Acute
--- NOTE | 2017-06-30 15:04 | HOSPPROG ---
Hospitalist Progress Note Assessment/Plan: 36 yo M with hx of psychiatric issues and homelessness admitted with left thumb cellulitis # left thumb cellulitis, abscess -s/p I & D and drainage -on Unasyn/ will change to Augmentin on dc #. h/o rectal perforation w colon resection, colostomy -pod #2 for a colostomy takedown and lysis of adhesion -patient is eating and drinking well # leukocytosis: in setting of above -will follow # psychiatric issues: with hx of self harm by inserting foreign body into his rectum -he does not currently carry a specific psychiatric diagnosis -he can be labile. When asked if he wanted his Seroquel resume the other day he said flat out know that he had not taken it for 3 months. Now is requesting it. Ordered this for tonight. # plan: Eating and drinking well today. The plan is for discharge tomorrow after the NOÉ drain is removed. Initially, the plan was for him to go stay with his father. Now is telling me he cannot stay there. Spoke to Case Management who will further evaluate & discuss with the patient. Subjective: Reji is angry that he is not getting enough sleep Objective: Vital Signs Temp Pulse Resp BP Pulse Ox 36.8 C 67 16 140/60 H 96 06/30/17 12:00 06/30/17 12:00 06/30/17 12:00 06/30/17 12:00 06/30/17 12:00 06/29/17 06/30/17 07/01/17 05:59 05:59 05:59 Intake Total 1000 220 Output Total 1365 1440 Balance -365 -1220 - Physical Exam Constitutional: no apparent distress, appears nourished, not in pain Eyes: PERRL Ears, Nose, Mouth, Throat: hearing normal Cardiovascular: regular rate and rhythym Respiratory: no respiratory distress Gastrointestinal: normoactive bowel sounds, other (noé w serous drainage) Skin: warm, normal color Musculoskeletal: full muscle strength Neurologic: AAOx3 Psychiatric: agitated, poor insight, poor judgement ICD10 Worksheet Patient Problems: Problems Problem Status Onset Infection of thumb Acute Abdominal pain Acute Intestinal perforation Acute Rectal foreign body Acute
--- NOTE | 2017-06-30 16:10 | ASMTCMCOM ---
CM Note CM Note Notes: Spoke to pt's mother Kristyn [phone] with pt's permission, she will pick him up and he can stay with her. She requests a bit of advanced notice as she is in [place] with her mother who is also in the hospital. DC Plan: Home with mother Date Signed: 06/30/2017 04:10 PM Electronically Signed By:Marylou Mobley RN
--- NOTE | 2017-06-30 16:21 | ASMTCMCOM ---
CM Note CM Note Notes: Spoke w/pt, PT/OT recomending SNF. Would like referral to go to [place]. DC Plan: SNF Date Signed: 06/30/2017 04:21 PM Electronically Signed By:Marylou Mobley RN
--- NOTE | 2017-06-30 16:29 | ASMTCMCOM ---
CM Note CM Note Notes: Disregard CM note about SNF, wrong pt. Date Signed: 06/30/2017 04:30 PM Electronically Signed By:Marylou Mobley RN
[2017-06-30 19:42] VITALS: O2SAT 96
[2017-06-30] MEDS ORDERED: QUEtiapine FUMARATE 300 MG TAB PO SCH (21:00)
[2017-07-01] MEDS: AMPICILLIN/SULBACTAM 3 GM in NS 100 ML IV SCH ×2 (00:11→06:33)
[2017-07-01 07:31] VITALS: BP 123/76; PULSE 67; RESP 16; TEMP 98.5
--- NOTE | 2017-07-01 08:08 | SOAPPROG ---
SOAP Progress Note Assessment/Plan: Assessment/Plan: 36-year-old male status post colostomy takedown VSS, HDS, Afebrile - Abdomen soft and nondistended. Midline incision c/d/i, Stoma site with 1 wick remaining, overlying dressing changed. - PASTORA serosang and minimal output, removed this AM - OK for dc whenever has place to go. I discussed with him that I need to see him later this week for stoma site eval and post-op. 06/29/17 11:06 06/29/17 11:07 06/30/17 09:48 07/01/17 08:07 Subjective: Upset this AM as his Dad no longer wants him to stay with him. Objective: Vital Signs Temp Pulse Resp BP Pulse Ox 36.9 C 67 16 123/76 H 96 07/01/17 07:25 07/01/17 07:25 07/01/17 07:25 07/01/17 07:25 07/01/17 07:25 06/30/17 07/01/17 07/02/17 05:59 05:59 05:59 Intake Total 220 1850 453 Output Total 1440 1691 Balance -1220 159 453 ICD10 Worksheet Patient Problems: Problems Problem Status Onset Infection of thumb Acute Abdominal pain Acute Intestinal perforation Acute Rectal foreign body Acute
[2017-07-01] MEDS: oxyCODONE IR 5 MG TAB PO PRN ×2 (08:31→11:42)
[2017-07-01] MEDS ORDERED: AMOXICILLIN/CLAVULANATE POT 875/125 MG TAB PO SCH (11:30)
--- NOTE | 2017-07-01 11:35 | GDS ---
[f rep st] DISCHARGE SUMMARY DISCHARGE DIAGNOSES: 1. Left thumb cellulitis secondary to trauma, status post incision, drainage, and nail removal. Cur rently on p.o. antibiotics at the time of discharge. 2. History of rectal perforation status post colostomy with takedown, postoperative day 2. 3. Leukocytosis in the setting of above infection. 4. History of psychiatric illnesses. PROCEDURES: 1. 06/26/2017, bedside incision and drainage. 2. 06/25/2017, finger x-ray which showed cellulitis with soft tissue gas. 3. 06/27/2017, abdominal CT which showed resolution of previously noted fluid collection in the Osman moon's pouch, [id number] residual wall thickening of the Nikolas's pouch, indeterminate metall ic foreign object in the cecum, peribronchial thickening suggestive of bronchitis. CONSULTATIONS: 1. Infectious disease. 2. Dr. Schneider of General Surgery. BRIEF HISTORY: Please see dictated H and P for complete details. In brief, the patient is a 36-year -old male with previously noted psychiatric issues and homelessness, who was admitted with a left beka mb cellulitis in the setting of trauma. He also has a colostomy and proceeded to take down this admi ssion. HOSPITAL COURSE BY PROBLEM: 1. Left thumb cellulitis with abscess formation. He has been seen by Infectious Disease, who has pl aced him on Unasyn. He will be discharged on p.o. Augmentin at time of discharge. This was treated with incision and drainage. 2. History of rectal perforation with colon resection and colostomy. He is postop day 2 for colosto my takedown and lysis of adhesions. He is eating and drinking well. He is being given a short presc ription for Oxy IR at time of discharge. 3. Leukocytosis in the setting of infection. This is improving at time of discharge. 4. Psychiatric issues. He has agreed to resume Seroquel. PHYSICAL EXAM: VITAL SIGNS: On day of discharge, blood pressure of 123/76, heart rate of 67, respir ations 16, O2 saturation 96% on room air, temp of 98.5 degrees Fahrenheit. GENERAL: He is a somewha t agitated male in no apparent distress. ABDOMEN: Tender with normoactive bowel sounds. SKIN: War m and dry. Left thumb is in bandaging. The midline incision is healing well, without drainage. Sta ples are intact. LABORATORY DATA: CBC with WBC 11.46, hemoglobin 13.4, hematocrit 38.4, platelet count of 310. BMP w ith sodium 143, potassium 4.2, chloride 108, CO2 24, BUN 7, creatinine 0.7, glucose 100. RESULTS PENDING: None. DIET: Per previous. ACTIVITY: As tolerated. DISCHARGE MEDICATIONS: Please see med reconciliation. FOLLOWUP INSTRUCTIONS: 1. Follow up with Dr. Schneider in 1 week's time. 2. Follow up with primary care in 1 week's time. Please note that greater than 30 minutes was spent on discharge and coordination of care. /[id number]/MODL
--- NOTE | 2017-07-01 12:33 | ASDISCHSUM ---
Discharge Information Plan Status:Homeless/Custodial Medically Cleared to Leave: Discharge Date:07/01/2017 11:49 AM CM D/C Disposition:Home, Routine, Self-Care ADT D/C Disposition:Home, Routine, Self-Care Projected Discharge Date:07/02/2017 11:00 AM Transportation at D/C:Bus Ticket Discharge Delay Reason: Follow-Up Date:07/02/2017 11:00 AM Discharge Slot: Final Diagnosis: Placement Information Referral Type:*Fdc/SNF Referral ID:[id number] Provider Name: Address 1: Phone Number: Address 2: Fax Number: City: Selection Factors: State: Patient Contact Information Contact Name:MUSA Relationship:Mother Address: Work Phone: City: [facility] Phone: [facility] Code: Email: Financial Information Financial Class: Primary Plan Desc:[employer] [place] Primary Plan Number:[id number] Secondary Plan Desc: Secondary Plan Number: Assessment Information [facility] CM Progress Note CM Note CM Note Notes: Patient admitted with left thumb cellulitis/abscess. Bedside I&D performed in ED. He's being treated with Ancef; ID to see patient today. Patient also has a colostomy that is pending take-down - surgery will also be consulted. I tried to speak with patient about discharge planning and how he's been managing since his last admission this spring. Per patient, he was in [facility] from [facility] (time of last [facility] d/c) until February and has had no follow up care or medication since February. He had unsavory things to say about the [facility], saying they would not fill his prescriptions without a doctor's appointment. He didn't want to talk about resources or what he might need after this hospitalization. He said he's leaving [place] and going to [place] with his parents. He became more irritated the longer we spoke. Case Management will follow. Current CM discharge plan: TBD Date Signed: 06/26/2017 11:18 AM Electronically Signed By:Joy Heredia RN [facility] CM Progress Note CM Note CM Note Notes: Pt will be taken to surgery tomorrow for a takedown of his colostomy, CM will follow post op. Date Signed: 06/27/2017 05:21 PM Electronically Signed By:Marylou Mobley RN [facility] CM Progress Note CM Note CM Note Notes: Spoke w/pt re; dc poc. Pt states that his father is going to pick him up tomorrow and that he will stay their at [place]. CM will consult with regarding follow up mental health resources. DC Plan: Home with parents Date Signed: 06/29/2017 03:18 PM Electronically Signed By:Marylou Mobley RN [facility] CM Progress Note CM Note CM Note Notes: Spoke to pt's mother Kristyn [phone] with pt's permission, she will pick him up and he can stay with her. She requests a bit of advanced notice as she is in [place] with her mother who is also in the hospital. DC Plan: Home with mother Date Signed: 06/30/2017 04:10 PM Electronically Signed By:Marylou Mobley RN [facility] CM Progress Note CM Note CM Note Notes: Spoke w/pt, PT/OT recomending SNF. Would like referral to go to [place]. DC Plan: SNF Date Signed: 06/30/2017 04:21 PM Electronically Signed By:Marylou Mobley RN [facility] CM Progress Note CM Note CM Note Notes: Disregard CM note about SNF, wrong pt. Date Signed: 06/30/2017 04:30 PM Electronically Signed By:Marylou Mobley RN [facility] CM Progress Note CM Note CM Note Notes: Patient was told that he was appropriate for discharge today and he became very angry, combative, and unreasonable. He was perseverating on that fact that he had been told he would stay here for 5 days post-op, and it had only been a few. When Dr Schneider offered to keep him until tomorrow, patient was already too amped up to be reasonable or consider any offers. I spoke to his mother Kristyn in [place] who said she could try and get him a ride/bus ticket to get to his aunt's house in [place] tomorrow, but that she was unable to reason with patient either. Unfortunately, the [facility] bus is not running today, and I explained this to patient, offering to help with a ticket for tomorrow. Ultimately, no one including RN and chargemaster analyst were able to convince patient to stay. He was compliant with signing paperwork, and we gave him his prescriptions and a local bus pass. Date Signed: 07/01/2017 12:32 PM Electronically Signed By:Joy Heredia RN Intervention Information
== END 2017-07-01 11:49 | disposition home or self-care (01) | DRG 983 ==
LOC: EDUNIT# → F3E 10:32 → OBSVTOIN 06-26 15:21
PROVIDERS: ADMIT Internal Medicine; ATTEND Internal Medicine
PROC: 0HDQXZZ Extraction of Finger Nail, External Approach (ICD-10-PCS; 2017-06-25)
PROC: 0DBN0ZZ Excision of Sigmoid Colon, Open Approach (ICD-10-PCS; principal; 2017-06-28 14:15)
DX: L03.012 Cellulitis of left finger (principal); Z93.3 Colostomy status; Z59.0 Homelessness; Z53.31 Laparoscopic surgical procedure converted to open procedure; Z72.0 Tobacco use
CPT/HCPCS: 96365; G0378; J0171; J0295; J0690; J1100; J1170; J2060; J2250; J2370; J2405; J2704; J3010; Q9967

== ENCOUNTER 2017-07-01 17:27 | Emergency (ER) | payer MEDICAID ==
[~2017-07-01 17:27] MED LIST: AMOXICILLIN/CLAVULANATE POT 875/125 MG TAB PO SCH; QUEtiapine FUMARATE 300 MG TAB PO SCH
--- NOTE | 2017-07-01 17:30 | EDPHY ---
H & P Time Seen by Provider: 07/01/17 17:28 HPI/ROS: HPI: This is a 36-year-old male presents with Chief Complaint: Location: Quality: Duration: Signs and Symptoms: no fever, no nausea, no vomiting, no hematemesis, no blood in stool, no abdominal bloating, no diarrhea, no back pain, no urinary symptoms , no testicular/groin pain, no indigestion, no chest pain, no shortness of breath Timing: Severity: Context: Modifying Factors: Comment: ROS: see HPI Constitutional: No fever, no chills, no weight loss Eyes: No blurred vision Respiratory: No shortness of breath, no cough Cardiovascular: No chest pain, no palpitations Gastrointestinal: No nausea, no vomiting, no diarrhea, no hematemesis, no blood in stool Genitourinary: No dysuria, no blood in urine Extremities: No myalgias, no edema Neurologic: No weakness, no numbness Skin: No rashes, no petechiae Hematologic: No bruising, no bleeding MEDICAL/SURGICAL/SOCIAL HISTORY: Medical/surgical history: manic-depression, schizoaffective, sciatic, adhd, unknown reason why pt has colostomy Social history: CONSTITUTIONAL: awake and alert, no obvious distress HEENT: Atraumatic and normocephalic, PERRL, EOMI. Tympanic membranes clear. Oropharynx clear, no exudate and moist pink mucosa. Airway patent. No lymphadenopathy. No meningismus. Cardiovascular: Normal S1/S2, regular rate, regular rhythm, without murmur rub or gallop. PULMONARY/CHEST: Symmetrical and nontender. Clear to auscultation bilaterally. Good air movement. No accessory muscle usage. ABDOMEN: Soft, nondistended, nontender, no rebound, no guarding, no peritoneal signs, no masses or organomegaly. No CVAT. EXTREMITIES: 2/2 pulses, strength 5/5, no deformities, no clubbing, no cyanosis or edema. NEUROLOGICAL: no focal neuro deficits. GCS 15. SKIN: Warm and dry, no erythema. no rash. Good capillary refill. Source: Patient Exam Limitations: No limitations - Medical/Surgical History Hx Asthma: No Hx Chronic Respiratory Disease: No Hx Diabetes: No Hx Cardiac Disease: No Hx Renal Disease: No Hx Cirrhosis: No Hx Alcoholism: No Hx HIV/AIDS: No Hx Splenectomy or Spleen Trauma: No Other PMH: manic-depression, schizoaffective, sciatic, adhd, unk reason why pt has colostomy - Social History Smoking Status: Current every day smoker Allergies/Adverse Reactions: No Known Allergies Allergy (Verified 06/25/17 06:34) Home Medications: Medication Instructions Recorded QUEtiapine FUMARATE [Seroquel 900 mg PO HS 06/26/17 300mg (*)] Acetaminophen [Tylenol 325mg (*)] 650 mg PO Q4HRS PRN tab 07/01/17 Amoxicillin/Clavulanate Pot 875 mg PO BID #4 tab 07/01/17 [Augmentin 875 MG TAB (*)] QUEtiapine FUMARATE [Seroquel 300 mg PO HS #30 tab 07/01/17 300mg (*)] oxyCODONE IR [Oxycodone Ir (*)] 5 - 10 mg PO Q3HRS PRN #10 tab 07/01/17 Departure - Departure Referrals: NONE *PRIMARY CARE P,. [Primary Care Provider] - As per Instructions
[2017-07-01 17:34] VITALS: RESP 18
--- NOTE | 2017-07-01 17:46 | EDPHY ---
H & P Time Seen by Provider: 07/01/17 17:28 HPI/ROS: Chief complaint. Abdominal pain HPI. Patient is 36-year-old male was discharged from the hospital today and it sounds like it was a difficult discharge. Case management was involved. I reviewed the records. Patient was discharged with prescriptions for pain medication and antibiotics. However pharmacies are all closed today. He was going to take the bus to [place] however bus services not operating today because of the holiday. Patient does not have placed stay. His abdominal pain is the same pain that he had when he was discharged and examined earlier today. No new or different pain. No vomiting. No fever. He is just out of his medications and does not have a place to stay ROS Constitutional. no fever/chills, no weakness Eyes. no problems with vision ENT. no sore throat, no nasal drainage Cardiovascular. no chest pain Respiratory. no shortness of breath, no cough Abdominal. Abdominal pain post surgery . no problems urinating MS. Left thumb infections Skin. no rash Lymph. no swollen glands Neuro. no headache, no dizziness, no difficulty walking or with speech Past Medical/Surgical History: Past medical history significant for schizoaffective, manic depression, attention deficit hyperactivity disorder rectal perforation and now 2 days post status post takedown of his colostomy. Social History: Single, daily smoker, no alcohol Smoking Status: Current every day smoker Physical Exam: General Appearance: Alert well-developed male mild distress vital signs significant for initial heart rate 120 Eyes: Pupils equal and round no pallor or injection. ENT, Mouth: Mucous membranes are moist. Respiratory: There are no retractions, lungs are clear to auscultation. Cardiovascular: Regular rate and rhythm. Gastrointestinal: Abdomen is soft with surgical incision and arie in place. Stab wounds where drains had been removed. No evidence for infection. Neurological: Awake and alert, sensory and motor exams grossly normal. Skin: Warm and dry, no rashes. Musculoskeletal: Neck is supple nontender. Extremities symmetrical, full range of motion. Psychiatric: Patient is oriented X 3, there is no agitation. Constitutional: Initial Vital Signs Temperature (C) 36.8 C 07/01/17 17:33 Heart Rate 120 H 07/01/17 17:33 Respiratory Rate 18 07/01/17 17:33 Blood Pressure 147/91 H 07/01/17 17:33 O2 Sat (%) 95 07/01/17 17:33 O2 Delivery Mode Room Air Allergies/Adverse Reactions: No Known Allergies Allergy (Verified 06/25/17 06:34) Home Medications: Medication Instructions Recorded QUEtiapine FUMARATE [Seroquel 900 mg PO HS 06/26/17 300mg (*)] Acetaminophen [Tylenol 325mg (*)] 650 mg PO Q4HRS PRN tab 07/01/17 Amoxicillin/Clavulanate Pot 875 mg PO BID #4 tab 07/01/17 [Augmentin 875 MG TAB (*)] QUEtiapine FUMARATE [Seroquel 300 mg PO HS #30 tab 07/01/17 300mg (*)] oxyCODONE IR [Oxycodone Ir (*)] 5 - 10 mg PO Q3HRS PRN #10 tab 07/01/17 Medical Decision Making ED Course/Re-evaluation: Patient is given take homes of Percocet and Augmentin. We will try to arrange to get patient taken to the homeless senior care for tonight. Patient expresses understanding and agreement with this plan We obtained the prescriptions from the patient and sent them down to our pharmacy. They will not fill the prescription for the oxycodone so he will be given a take-home of Percocet. We are trying to get the patient to a warming senior care. Case management is no longer here this evening Differential Diagnosis: Abdominal pain postoperatively. However it is not new or different. Patient was given prescriptions but pharmacies are all closed today. He also does not have a place to stay tonight. - Data Points Medications Given: Discontinued Medications Amoxicillin/Clavulanate Potassium (Augmentin 875mg) 875 mg PO EDNOW ONE PRN Reason: Protocol Stop: 07/01/17 18:01 Last Admin: 07/01/17 18:32 Dose: 875 mg Oxycodone/Acetaminophen (Percocet 5/325mg Prepack#4) 1 btl TAKEHOME EDNOW ONE Stop: 07/01/17 18:00 Last Admin: 07/01/17 18:32 Dose: Not Given Oxycodone/Acetaminophen (Percocet 5/325mg Prepack#4) 1 btl TAKEHOME EDNOW ONE Stop: 07/01/17 18:05 Last Admin: 07/01/17 18:27 Dose: 1 btl Departure - Departure Disposition: Home, Routine, Self-Care Clinical Impression: Abdominal pain Qualifiers: Abdominal location: generalized Qualified Code(s): R10.84 - Generalized abdominal pain Condition: Good Instructions: Abdominal Pain (ED) Additional Instructions: Percocet as needed for pain. Augmentin as antibiotic. Return for worsening symptoms and follow up with Dr. Schneider as previously recommended Return for worsening pain and recheck in 1 day for continuing pain and symptoms Referrals: NONE *PRIMARY CARE P,. [Unknown] - As per Instructions José Schneider MD [Medical Doctor] - As per Instructions
[2017-07-01] MEDS ORDERED: OXYCODONE/APAP 5/325MG PREPACK#4 BTL TAKEHOME ONE ×2 (17:59→18:04)
[2017-07-01] MEDS ORDERED: AMOXICILLIN/CLAVULANATE POT 875/125 MG TAB PO ONE (18:00)
[2017-07-01 18:34] VITALS: BP 150/98; PULSE 110; TEMP 98.6; O2SAT 97
== END 2017-07-01 18:34 | disposition home or self-care (01) ==
LOC: EDUNIT#
DX: R10.84 Generalized abdominal pain (principal); F17.200 Nicotine dependence, unspecified, uncomplicated